=== PATIENT | female | born 1955 | race Caucasian/White ===

== ENCOUNTER → 2017-10-09 08:27 | Outpatient (CLI) | payer OTHER, SELFPAY ==
[2017-10-09 12:39] LABS: Absolute Lymphocyte Count 1.25 X10^3/ul (0.83-4.51); Absolute Neutrophil Count 2.9 X10^3/uL (2.0-7.7); Basophil# 0.03 X10^3/uL; Basophil% 0.6 % (0-1); Eosinophils% 4.1 % (0-5); Erythrocyte Sedimentation Rate 20 mm/hr (0-30); Hematocrit 37.6 % (37-47); Hemoglobin 12.5 g/dl (12.0-15.0); Lymphocyte # 1.25 X10^3/ul (4.0); Lymphocyte % 25.9 % (19-41); Mean Corp Hgb Conc 33.2 g/gl (32-36); Mean Corpuscular Hgb 29.3 pg (27.0-32.0); Mean Corpuscular Volume 88.3 fL (81-99); Mean Platelet Vol. 10.1 fl (6.2-12.0); Monocyte# 0.46 X10^3/uL; Monocyte% 9.5 % (0-10); Neutrophil # 2.89 X10^3/uL (2.7-7.7); Neutrophil % 59.9 % (47-70); Platelet Count 276 K/mm3 (150-450); RBC Distribution Width CV 12.6 % (11.6-14.6); RBC Distribution Width SD 39.8 fl (35.1-43.9); Red Blood Count 4.26 M/mm3 (4.2-5.4); White Blood Count 4.8 K/mm3 (4.4-11.0)
[2017-10-09 12:40] LABS: POSITIVE COUNT NO; POSITIVE DIFFERENTIAL NO; POSITIVE MORPHOLOGY NO
[2017-10-09 12:50] LABS: Vitamin D,25 Hydroxy 25.2 ng/mL (29.95-100.01)
[2017-10-09 13:04] LABS: ALB/GLOB Ratio 0.9 RATIO (0.9-2.4); AST(SGOT) 15 U/L (15-37); Alanine Aminotransfer ALT/SGPT 27 U/L (13-56); Albumin, Serum 3.7 g/dL (3.2-5.0); Alkaline Phosphatase 139 U/L (45-117); Anion Gap 9 (5-15); BUN 16 mg/dL (7-18); BUN/Creat Ratio 16.1 RATIO (10-20); Chloride 109 mmol/L (98-107); Creatinine, Serum 0.99 mg/dL (0.55-1.02); EST Glomerular Filtration Rate 61 mL/min (>60); Est Glom Filt Rate - Afr Amer 73 mL/min (>60); Glucose 96 mg/dL (74-106); Lipase 111 U/L (73-393); Potassium 4.2 mmol/L (3.5-5.1); Protein, Total 7.7 g/dL (6.4-8.2); Sodium Level 143 mmol/L (136-145); T4 Free Direct 1.27 ng/dL (0.76-1.46); Thyroid Stim Hormone (TSH) 1.86 uIU/mL (0.358-3.74)
== END ==
PROVIDERS: Family Provider Family Medicine; PCP Family Medicine; Visit Provider Family Medicine
DX: R73.01 Impaired fasting glucose (principal); E03.9 Hypothyroidism, unspecified; I10 Essential (primary) hypertension; R11.0 Nausea; M13.0 Polyarthritis, unspecified; R53.83 Other fatigue
CPT/HCPCS: 36415; 80053; 82306; 83690; 84439; 84443; 85025; 85652

== ENCOUNTER → 2017-10-21 08:36 | Outpatient (CLI) | payer OTHER, SELFPAY ==
--- NOTE | 2017-10-21 08:38 | BI_ITS ---
MAMMOGRAPHY - BILATERAL SCREENING REASON FOR EXAM: Female, 62 years old. Routine annual screening examination. PERTINENT HISTORY: Mother with breast cancer. Aunts with breast cancer. TECHNIQUE: Digital bilateral breast david (3D mammographic acquisition) in the CC and MLO projections. 2-D mediolateral oblique (MLO) and craniocaudad (CC) views of both breasts were obtained. CAD: Full Field Digital Mammography with Computer Added Detection was performed. COMPARISON: Comparison is made with prior study dated August 01, 2016. FINDINGS: Breast Composition: The breasts are heterogeneously dense, which may obscure small masses. There are no dominant masses or suspicious calcifications. No other significant abnormalities are identified. There has been no significant change since the prior study. BI/SCREENING MAMM (CAD), BILAT IMPRESSION: Stable bilateral screening mammogram. Yearly follow-up mammogram recommended. (A) ASSESSMENT CATEGORY: BIRADS Category 1: Negative. A letter regarding these results will be sent to the patient by the facility within 30 days. Approximately 10% of breast cancers are not detected by mammography. A normal mammogram should not delay biopsy of a clinically suspicious abnormality. [id number] Electronically Signed: Gavino Johnson MD at 8:18 EDT Tel [phone], Service support ,
== END ==
PROVIDERS: Family Provider Family Medicine; PCP Family Medicine; Visit Provider Family Medicine
DX: Z12.31 Encounter for screening mammogram for malignant neoplasm of breast (principal)
CPT/HCPCS: 77063; 77067

== ENCOUNTER → 2018-06-19 08:12 | Outpatient (CLI) | payer OTHER, SELFPAY ==
[2018-06-19 12:10] LABS: Absolute Lymphocyte Count 1.53 X10^3/ul (0.83-4.51); Absolute Neutrophil Count 2.1 X10^3/uL (2.0-7.7); Basophil# 0.03 X10^3/uL; Basophil% 0.7 % (0-1); Eosinophil# 0.27 X10^3/uL; Hematocrit 37.6 % (37-47); Hemoglobin 11.6 g/dl (12.0-15.0); Lymphocyte # 1.53 X10^3/ul (4.0); Lymphocyte % 33.9 % (19-41); Mean Corp Hgb Conc 30.9 g/gl (32-36); Mean Corpuscular Hgb 25.3 pg (27.0-32.0); Mean Corpuscular Volume 81.9 fL (81-99); Mean Platelet Vol. 9.9 fl (6.2-12.0); Monocyte# 0.56 X10^3/uL; Monocyte% 12.4 % (0-10); Neutrophil # 2.12 X10^3/uL (2.7-7.7); Platelet Count 335 K/mm3 (150-450); RBC Distribution Width CV 13.4 % (11.6-14.6); RBC Distribution Width SD 40.3 fl (35.1-43.9); Red Blood Count 4.59 M/mm3 (4.2-5.4); White Blood Count 4.5 K/mm3 (4.4-11.0)
[2018-06-19 12:14] LABS: POSITIVE COUNT NO; POSITIVE DIFFERENTIAL NO; POSITIVE MORPHOLOGY NO
[2018-06-19 12:57] LABS: Vitamin B12 593 pg/mL (211-911); Vitamin D,25 Hydroxy 48.9 ng/mL (29.95-100.01)
[2018-06-19 13:00] LABS: AST(SGOT) 19 U/L (15-37); Alanine Aminotransfer ALT/SGPT 31 U/L (13-56); Albumin, Serum 3.6 g/dL (3.2-5.0); Alkaline Phosphatase 164 U/L (45-117); Anion Gap 11 (5-15); BUN 16 mg/dL (7-18); BUN/Creat Ratio 18.1 RATIO (10-20); Calcium,Total 8.9 mg/dL (8.5-10.1); Chloride 108 mmol/L (98-107); Creatinine, Serum 0.88 mg/dL (0.55-1.02); EST Glomerular Filtration Rate 69 mL/min (>60); Est Glom Filt Rate - Afr Amer 83 mL/min (>60); Globulin 3.6 g/dL (2.2-4.2); Glucose 95 mg/dL (74-106); Potassium 3.8 mmol/L (3.5-5.1); Protein, Total 7.2 g/dL (6.4-8.2); Sodium Level 145 mmol/L (136-145); T4 Free Direct 1.54 ng/dL (0.76-1.46); Thyroid Stim Hormone (TSH) 0.02 uIU/mL (0.358-3.74)
== END ==
PROVIDERS: Family Provider Family Medicine; PCP Family Medicine; Visit Provider Family Medicine
DX: E03.9 Hypothyroidism, unspecified (principal); I10 Essential (primary) hypertension; R53.83 Other fatigue
CPT/HCPCS: 36415; 80053; 82306; 82607; 84439; 84443; 85025

== ENCOUNTER → 2018-06-25 09:25 | Outpatient (CLI) | payer OTHER, SELFPAY ==
[2018-06-25 12:26] LABS: Absolute Lymphocyte Count 1.31 X10^3/ul (0.83-4.51); Absolute Neutrophil Count 2.8 X10^3/uL (2.0-7.7); Basophil# 0.02 X10^3/uL; Basophil% 0.4 % (0-1); Eosinophil# 0.29 X10^3/uL; Eosinophils% 5.9 % (0-5); Hematocrit 35.4 % (37-47); Hemoglobin 10.8 g/dl (12.0-15.0); Lymphocyte # 1.31 X10^3/ul (4.0); Lymphocyte % 26.6 % (19-41); Mean Corp Hgb Conc 30.5 g/gl (32-36); Mean Corpuscular Hgb 25.2 pg (27.0-32.0); Mean Corpuscular Volume 82.5 fL (81-99); Mean Platelet Vol. 10.2 fl (6.2-12.0); Monocyte# 0.48 X10^3/uL; Monocyte% 9.7 % (0-10); Neutrophil # 2.82 X10^3/uL (2.7-7.7); Neutrophil % 57.2 % (47-70); Platelet Count 339 K/mm3 (150-450); RBC Distribution Width CV 13.5 % (11.6-14.6); RBC Distribution Width SD 39.8 fl (35.1-43.9); Red Blood Count 4.29 M/mm3 (4.2-5.4); White Blood Count 4.9 K/mm3 (4.4-11.0)
[2018-06-25 12:28] LABS: POSITIVE COUNT NO; POSITIVE DIFFERENTIAL NO; POSITIVE MORPHOLOGY NO
[2018-06-25 13:01] LABS: Vitamin B12 538 pg/mL (211-911)
[2018-06-25 13:45] LABS: Ferritin 7 ng/mL (8-252); Iron 31 ug/dL (50-170)
== END ==
PROVIDERS: Family Provider Family Medicine; PCP Family Medicine; Visit Provider Family Medicine
DX: D64.9 Anemia, unspecified (principal)
CPT/HCPCS: 36415; 82607; 82728; 82746; 83540; 85025

== ENCOUNTER 2018-07-10 09:37 | Day surgery (SDC) | payer OTHER, SELFPAY ==
[2018-07-10] VITALS (9 sets, daily range): BP systolic 101–138; BP diastolic 58–80; PULSE 81–112; RESP 16–18; TEMP 36.2–36.8; O2SAT 96–100; BMI 34.7
--- NOTE | 2018-07-10 11:06 | OP.ENDO_ITS ---
07/10/2018 Vinnie Leo Re : Upper GI endoscopy procedure for Gricelda Garcia Dear Felipa This procedure was performed on Tuesday, July 10, 2018. My impressions and recommendations are as follows: Impressions : - Normal esophagus. - Normal stomach. - Normal examined duodenum. - No specimens collected. Recommendations : - Discharge patient to home. - Resume previous diet. - Continue present medications. My findings are described in the full procedure note, which is enclosed. If I can be of further assistance, please feel free to contact me at Doctor phone number(s): , Work: . Sincerely, Dinesh Church MD 07/10/2018 11:06:44 AM This report has been signed electronically.
--- NOTE | 2018-07-10 11:08 | OP.ENDO_ITS ---
07/10/2018 Vinnie Leo Re : Colonoscopy procedure for Gricelda Garcia Dear Felipa This procedure was performed on Tuesday, July 10, 2018. My impressions and recommendations are as follows: Impressions : - The entire examined colon is normal on direct and retroflexion views. - No specimens collected. Recommendations : - Discharge patient to home. - Resume previous diet. - Continue present medications. - Repeat colonoscopy in 10 years for screening purposes. My findings are described in the full procedure note, which is enclosed. If I can be of further assistance, please feel free to contact me at Doctor phone number(s): , Work: . Sincerely, Dinesh Church MD 07/10/2018 11:07:53 AM This report has been signed electronically.
--- NOTE | 2018-07-10 11:09 | H&P.OPEN ---
History of Present Illness Date of Admission: 07/10/18 The patient is a 63 year old F here for screening colonoscopy. The patient had a colonoscopy 5 years ago and a polyp was noted. She has no gross blood in her stool or abdominal pain. She does have iron deficiency anemia and her doctor asked for an EGD as well. She is not complaining of any GERD. She is on no blood thinners and no ulcerogenic medicines. Past Medical/Surgical History - Planned Operation Planned Operative Procedure/s: CSCOPE/EGD OPEN ACCESS Date of Operative Procedure: 07/10/18 Permit Signed: No S.O.S: No Is This Patient Having a Total Joint: No - Previous Hospitalizations/Surgeries HX Hospitalizations: Yes - 2003 FOR CHEST PAIN HX of Surgeries: LEFT TKR 2012. BREAST BIOPSY 1992. LEG FX CHILD. TUBAL LIGATION. COLONOSCOPY 2012. HEART CATH 2003 Any Problems With Anesthesia: No You/Your Family Experience Fever (Hyperthermia) With Anes: No Cholinesterase deficiency: No - Cardiovascular Hx Chest Pain within Last 2 months: No Hx of Irregular Heartbeat and/or Afib: No - LAST CARDIOLOGY VISIT 2015/ Hx Heart Attack: No Hx Congestive Heart Failure: No Hx Rheumatic Fever: No Hx Hypertension: Yes - CONTROLLED WITH MED Hx Internal Defibrillator: No Hx Pacemaker: No Hx Cardiac Catheterization: Yes - 2003 What facility was last heart cath performed: [place] Date of last Heart Cath: 2003 Hx Cardiac Surgery/Stents/Etc.: No Hx Stress Test: Yes - OVER 5 YRS AGO HX Edema: Yes - OCC ANKLE EDEMA Hx Pain in Legs when Walking/Leg Cramps: No - Respiratory Chronic Cough: No HX of Shortness of Breath: Yes - SOB WITH 2 FLIGHTS OF STAIRS Hoarseness: No Hx Chronic Obstructive Pulmonary Disease (COPD): No Hx Asthma: Yes - INHALER Hx Emphysema: No Hx Sleep Apnea: No Hx Oxygen Use at Home: No Hx Respiratory Tract Infection/Cold (presently): No Do You Snore Loudly (louder than talking or can be heard): Yes Do You Often Feel Tired/ Fatigued/ Sleepy Dring Daytime?: No Has Anyone Observed You Stop Breathing During Sleep?: No Result (for STOP score): Positive Hx Smoking: No Smoking Status: Never smoker - Gastrointestinal Hx Gastroesophageal Reflux: No - OCC HEARTBURN Hx Gastrointestinal Disorders: No Hx Gastrointestinal Bleed: No Hx Ulcer: No Hx Hiatal Hernia: No Difficulty Chewing/Swallowing: No Recent Onset of Swallowing Problems: No Special diet followed at home: No Hx Unplanned Weight Loss of 20#: No HX Unplanned Weight Gain of 20#: No - Neurological HX Syncope/Blackout Spells/Unconsciousness: Yes - SYNCOPE RELATED TO EAR FULLNESS Hx CVA/Stroke: No Hx Transient Ischemic Attacks (TIA): No Hx Multiple Sclerosis: No Hx Parkinson's Disease: No Hx Head/Neck Injury: No Hx Headaches: No Hx Back Injury/Pain: Yes - CHRONIC BACK PAIN Recent Onset of Speech Difficulty: No Restless Legs: No Does patient have nerve stimulator: No Patient instructed to have device shut off: No Rep notified?: No - Blood Disorder Hx Leukemia: No Bleeding Tendencies: Yes - BRUISES EASILY Hx Deep Vein Thrombosis: No Hx High Cholesterol: Yes - ON MED Blood Transmitted Disease: No Hx Hepatitis: No Hx Cirrhosis: No Hx Anemia: Yes - CURRENTLY ON SUPPLEMENT Hx Blood Disorders: No - Reproduction : No Is Patient Lactating: No Hx Hysterectomy: No Hx Tubal Ligation: Yes Are You Post Menopause: Yes - Genitourinary Hx Renal Disease: No - Musculoskeletal Hx Arthritis: Yes Hx Rheumatoid Arthritis: No Hx Gout: No Recent Onset of an Orthopedic Problem: No - Endocrine Hx Diabetes: No Thyroid Disease: Yes - ON MED Hx Steroid Therapy: No - Psycho/Social Hx Substance Use: No Hx Alcohol Use: No Hx Anxiety: Yes - OCC Hx Depression: Yes - ON MED Mental Illness: No Hx Dementia: No - Miscellaneous Hx Cancer: No Recent Exposure to Contagious Disease: No Active MRSA: No Hx of C-Diff: No Any Loose Teeth: No Allergies Penicillins Allergy (Unknown, Verified 07/09/18 09:07) Rash shellfish derived Allergy (Unknown, Verified 07/09/18 09:07) Rash - Discharge Is Pt Admitted From a Custodial, or a Usp: No Who Could Help: FAMILY After D/C, Where Do you Plan to Go: Return Home - From the PAT History Number of Risk Factors: 5 - Physical Exam General: Alert, Oriented x3, Cooperative Neck: No JVD Lungs: Normal air movement Cardiovascular: Regular rate, Regular Rhythm Abdomen: Soft, Non Tender, Non-Distended Vital Signs Temp Pulse Resp BP Pulse Ox 98.2 F 112 H 16 138/80 H 96 07/10/18 10:00 07/10/18 10:00 07/10/18 10:00 07/10/18 10:00 07/10/18 10:00 Oxygen Delivery Method Room Air Weight: 202 lb Body Mass Index (BMI) 34.7 Assessment/Plan All Active Problems (Last Updated 10/11/17 @ 16:53 by Deepali Dixon) Cellulitis of right lower extremity (Acute) 63-year-old female with iron deficiency anemia and history of polyp 1. Plan on EGD and colonoscopy I explained endoscopy in detail to the patient. I explained the risks including but not limited to stroke or heart attack with anesthesia, perforation of the GI tract, bleeding, infection. I explained that any of these could necessitate further emergency surgery. The patient understands and all questions were answered sufficiently. The patient wishes to proceed with procedure. Dinesh Church MD Pager: [facility] [address] [place] [address] [address] [place] [address] Office: Surgery Risks - Colonoscopy Risks Include but are not Limited To: Risks include but are not limited to: Bleeding, perforation requiring further surgery, inability to complete colonoscopy requiring barium enema.
--- NOTE | 2018-07-10 11:10 | PCM.PN.BLA ---
Progress Note I performed an EGD and colonoscopy on the patient. EGD was normal with no ulceration or signs of head patient had normal colonoscopy as well with no polyps. No explanation for the iron deficiency anemia. Patient may resume screening colonoscopies in 10 years. Dinesh Church MD Pager: [facility] [address] [place] [address], [address] [place] [address] Office:
--- NOTE | 2018-07-10 11:11 | PN_ITS ---
Progress Note I performed an EGD and colonoscopy on the patient. EGD was normal with no ulceration or signs of head patient had normal colonoscopy as well with no polyps. No explanation for the iron deficiency anemia. Patient may resume screening colonoscopies in 10 years. Dinesh Church MD Pager: [facility] [address] [place] [address], [address] [place] [address] Office:
== END 2018-07-10 11:58 | disposition home or self-care (01) ==
LOC: EN 09:37 → AC 09:41
PROVIDERS: Family Provider Family Medicine; PCP Family Medicine; Referring Provider Surgery; Visit Provider Surgery
PROC: 0DJD8ZZ Inspection of Lower Intestinal Tract, Via Natural or Artificial Opening Endoscopic (ICD-10-PCS; CPT 45378; principal; 2018-07-10 10:40)
DX: Z12.11 Encounter for screening for malignant neoplasm of colon (principal); D50.9 Iron deficiency anemia, unspecified; E78.00 Pure hypercholesterolemia, unspecified; F32.9 Major depressive disorder, single episode, unspecified; F41.9 Anxiety disorder, unspecified; E06.9 Thyroiditis, unspecified; I10 Essential (primary) hypertension; J45.909 Unspecified asthma, uncomplicated; Z86.010 Personal history of colon polyps; Z79.51 Long term (current) use of inhaled steroids; Z79.899 Other long term (current) drug therapy
CPT/HCPCS: 43235; 45378; J7120

== ENCOUNTER → 2018-07-25 08:13 | Outpatient (CLI) | payer OTHER, SELFPAY ==
[2018-07-10 10:00] VITALS: BMI 34.7
[2018-07-25 13:04] LABS: Thyroid Stim Hormone (TSH) 0.11 uIU/mL (0.358-3.74)
== END ==
PROVIDERS: Family Provider Family Medicine; PCP Family Medicine; Visit Provider Family Medicine
DX: E03.9 Hypothyroidism, unspecified (principal)
CPT/HCPCS: 36415; 84439; 84443

== ENCOUNTER → 2018-08-20 | Outpatient (CLI) | payer OTHER, SELFPAY ==
[2018-07-10 10:00] VITALS: BMI 34.7
[2018-08-20 14:34] LABS: T4 Free Direct 1.25 ng/dL (0.76-1.46); Thyroid Stim Hormone (TSH) 0.03 uIU/mL (0.358-3.74)
== END | disposition home or self-care (01) ==
LOC: BFHLAB 10:38
PROVIDERS: Family Provider Family Medicine; PCP Family Medicine; Visit Provider Family Medicine
DX: E03.9 Hypothyroidism, unspecified (principal)
CPT/HCPCS: 36415; 84439; 84443

== ENCOUNTER → 2018-11-02 | Outpatient (CLI) | payer OTHER, SELFPAY ==
[2018-07-10 10:00] VITALS: BMI 34.7
--- NOTE | 2018-11-02 12:50 | BI_ITS ---
MAMMOGRAPHY - BILATERAL SCREENING REASON FOR EXAM: Female, 63 years old. Routine annual screening examination. PERTINENT HISTORY: Mother with breast cancer. Aunts with breast cancer. TECHNIQUE: Digital bilateral breast hao (3D mammographic acquisition) in the CC and MLO projections. 2-D mediolateral oblique (MLO) and craniocaudad (CC) views of both breasts were obtained. CAD: Full Field Digital Mammography with Computer Added Detection was performed. COMPARISON: Comparison is made with prior study dated October 21, 2017 and August 01, 2016. FINDINGS: Breast Composition: The breasts are heterogeneously dense, which may obscure small masses. There are no dominant masses or suspicious calcifications. No other significant abnormalities are identified. There has been no significant change since the prior study. BI/SCREEN MAMM (CAD) W/HAO BILAT IMPRESSION: Stable bilateral screening mammogram. Yearly follow-up mammogram recommended. (A) ASSESSMENT CATEGORY: BIRADS Category 1: Negative. A letter regarding these results will be sent to the patient by the facility within 30 days. Approximately 10% of breast cancers are not detected by mammography. A normal mammogram should not delay biopsy of a clinically suspicious abnormality. [id number] Electronically Signed: Gavino Johnson, at 14:43 EDT , Service support ,
== END | disposition home or self-care (01) ==
LOC: OPBI 12:48
PROVIDERS: Family Provider Family Medicine; PCP Family Medicine; Referring Provider Family Medicine; Visit Provider Family Medicine
DX: Z12.31 Encounter for screening mammogram for malignant neoplasm of breast (principal)
CPT/HCPCS: 77063; 77067

== ENCOUNTER → 2018-11-12 | Outpatient (CLI) | payer OTHER, SELFPAY ==
[2018-07-10 10:00] VITALS: BMI 34.7
[2018-11-12 17:16] LABS: Absolute Neutrophil Count 3.7 X10^3/uL (2.0-7.7); Basophil# 0.04 X10^3/uL; Basophil% 0.6 % (0-1); Eosinophil# 0.23 X10^3/uL; Eosinophils% 3.6 % (0-5); Hematocrit 40.1 % (37-47); Hemoglobin 13.1 g/dL (12.0-15.0); Lymphocyte % 28.2 % (19-41); Mean Corp Hgb Conc 32.7 g/dL (32-36); Mean Corpuscular Hgb 27.2 pg (27.0-32.0); Mean Corpuscular Volume 83.4 fL (81-99); Mean Platelet Vol. 9.7 fl (6.2-12.0); Monocyte# 0.56 X10^3/uL; Monocyte% 8.8 % (0-10); NRBC Flagged by Analyzer 0 % (0-5); Neutrophil # 3.74 X10^3/uL (2.7-7.7); Neutrophil % 58.5 % (47-70); Platelet Count 329 K/mm3 (150-450); RBC Distribution Width CV 13.7 % (11.6-14.6); RBC Distribution Width SD 41.4 fl (35.1-43.9); Red Blood Count 4.81 M/mm3 (4.2-5.4); White Blood Count 6.4 K/mm3 (4.4-11.0)
[2018-11-12 17:45] LABS: Thyroid Stim Hormone (TSH) 0.13 uIU/mL (0.358-3.74)
== END | disposition home or self-care (01) ==
LOC: BFHLAB 14:35
PROVIDERS: Family Provider Family Medicine; PCP Family Medicine; Visit Provider Family Medicine
DX: E03.9 Hypothyroidism, unspecified (principal); D64.9 Anemia, unspecified
CPT/HCPCS: 36415; 84439; 84443; 85025

== ENCOUNTER → 2018-12-26 09:22 | Outpatient (CLI) | payer OTHER, SELFPAY ==
[2018-07-10 10:00] VITALS: BMI 34.7
[2018-12-26 13:12] LABS: T4 Free Direct 1.35 ng/dL (0.76-1.46); Thyroid Stim Hormone (TSH) 0.62 uIU/mL (0.358-3.74)
== END ==
PROVIDERS: Family Provider Family Medicine; PCP Family Medicine; Visit Provider Family Medicine
DX: E03.9 Hypothyroidism, unspecified (principal)
CPT/HCPCS: 36415; 84439; 84443

== ENCOUNTER → 2019-06-19 08:26 | Outpatient (CLI) | payer OTHER, SELFPAY ==
[2018-07-10 10:00] VITALS: BMI 34.7
[2019-06-19 12:15] LABS: Absolute Lymphocyte Count 1.66 X10^3/uL (0.83-4.51); Absolute Neutrophil Count 2.8 X10^3/uL (2.0-7.7); Basophil# 0.05 X10^3/uL; Basophil% 0.9 % (0-1); Eosinophil# 0.35 X10^3/uL; Eosinophils% 6.4 % (0-5); Hematocrit 44.8 % (37-47); Hemoglobin 14.4 g/dL (12.0-15.0); Lymphocyte # 1.66 X10^3/ul (4.0); Lymphocyte % 30.6 % (19-41); Mean Corp Hgb Conc 32.1 g/dL (32-36); Mean Corpuscular Hgb 27.9 pg (27.0-32.0); Mean Corpuscular Volume 86.8 fL (81-99); Mean Platelet Vol. 9.7 fl (6.2-12.0); Monocyte# 0.59 X10^3/uL; Monocyte% 10.9 % (0-10); NRBC Flagged by Analyzer 0 % (0-5); Neutrophil # 2.76 X10^3/uL (2.7-7.7); Neutrophil % 50.8 % (47-70); Platelet Count 316 K/mm3 (150-450); RBC Distribution Width CV 12.7 % (11.6-14.6); Red Blood Count 5.16 M/mm3 (4.2-5.4); White Blood Count 5.4 K/mm3 (4.4-11.0)
[2019-06-19 12:30] LABS: Vitamin D,25 Hydroxy 56.8 ng/mL
[2019-06-19 12:32] LABS: AST(SGOT) 19 U/L (15-37); Alanine Aminotransfer ALT/SGPT 39 U/L (13-56); Albumin, Serum 3.8 g/dL (3.2-5.0); Alkaline Phosphatase 170 U/L (45-117); Anion Gap 7 (5-15); BUN 15 mg/dL (7-18); BUN/Creat Ratio 13.4 RATIO (10-20); Chloride 106 mmol/L (98-107); Creatinine, Serum 1.12 mg/dL (0.55-1.02); EST Glomerular Filtration Rate 52 mL/min (>60); Est Glom Filt Rate - Afr Amer 63 mL/min (>60); Glucose 98 mg/dL (74-106); Potassium 3.7 mmol/L (3.5-5.1); Protein, Total 7.8 g/dL (6.4-8.2); Sodium Level 139 mmol/L (136-145); T4 Free Direct 1.24 ng/dL (0.76-1.46); Thyroid Stim Hormone (TSH) 2.56 uIU/mL (0.358-3.74)
== END ==
PROVIDERS: PCP Family Medicine; Visit Provider Family Medicine
DX: E03.9 Hypothyroidism, unspecified (principal); I10 Essential (primary) hypertension; E55.9 Vitamin D deficiency, unspecified
CPT/HCPCS: 36415; 80053; 82306; 84439; 84443; 85025

== ENCOUNTER → 2019-11-04 | Outpatient (CLI) | payer OTHER, SELFPAY ==
[2018-07-10 10:00] VITALS: BMI 34.7
--- NOTE | 2019-11-04 08:37 | BI_ITS ---
MAMMOGRAPHY - BILATERAL SCREENING REASON FOR EXAM: Female, 64 years old. Routine annual screening examination. PERTINENT HISTORY: Mother with breast cancer. Aunts with breast cancer. TECHNIQUE: Digital bilateral breast hao (3D mammographic acquisition) in the CC and MLO projections. 2-D mediolateral oblique (MLO) and craniocaudad (CC) views of both breasts were obtained. CAD: Full Field Digital Mammography with Computer Added Detection was performed. COMPARISON: Comparison is made with prior study dated November 02, 2018 and October 21, 2017. FINDINGS: Breast Composition: The breasts are heterogeneously dense, which may obscure small masses. There are no dominant masses or suspicious calcifications. No other significant abnormalities are identified. There has been no significant change since the prior study. BI/SCREEN MAMM (CAD) W/HAO BILAT IMPRESSION: Stable bilateral screening mammogram. Yearly follow-up mammogram recommended. (A) ASSESSMENT CATEGORY: BIRADS Category 1: Negative. A letter regarding these results will be sent to the patient by the facility within 30 days. Approximately 10% of breast cancers are not detected by mammography. A normal mammogram should not delay biopsy of a clinically suspicious abnormality. [id number] Electronically Signed: Gavino Johnson, at 10:08 EDT , Service support ,
== END | disposition home or self-care (01) ==
LOC: OPBI 08:36
PROVIDERS: PCP Family Medicine; Referring Provider Family Medicine; Visit Provider Family Medicine
DX: Z12.31 Encounter for screening mammogram for malignant neoplasm of breast (principal)
CPT/HCPCS: 77063; 77067

== ENCOUNTER → 2019-11-12 | Outpatient (CLI) | payer OTHER, SELFPAY ==
[2019-11-12 10:16] VITALS: BMI 34.7
[2019-11-15 03:41] LABS: HPV APTIMA, High Risk Negative (Negative)
== END | disposition home or self-care (01) ==
LOC: LABSPEC 13:00
PROVIDERS: PCP Family Medicine; Referring Provider Nurse Practitioner Women's Health; Visit Provider Nurse Practitioner Women's Health
DX: Z12.4 Encounter for screening for malignant neoplasm of cervix (principal)
CPT/HCPCS: 87624; 88175; G0145

== ENCOUNTER → 2019-12-23 | Outpatient (CLI) | payer OTHER, SELFPAY ==
[2019-11-12 10:16] VITALS: BMI 34.7
[2019-12-23 12:27] LABS: Vitamin D,25 Hydroxy 67.6 ng/mL
[2019-12-23 12:39] LABS: ALB/GLOB Ratio 1.1 RATIO (0.9-2.4); AST(SGOT) 19 U/L (15-37); Alanine Aminotransfer ALT/SGPT 33 U/L (13-56); Albumin, Serum 3.9 g/dL (3.2-5.0); Alkaline Phosphatase 151 U/L (45-117); Anion Gap 7 (5-15); BUN 14 mg/dL (7-18); BUN/Creat Ratio 13.9 RATIO (10-20); Calcium,Total 9.1 mg/dL (8.5-10.1); Chloride 108 mmol/L (98-107); Creatinine, Serum 1.01 mg/dL (0.55-1.02); EST Glomerular Filtration Rate 59 mL/min (>60); Est Glom Filt Rate - Afr Amer 71 mL/min (>60); Globulin 3.7 g/dL (2.2-4.2); Glucose 98 mg/dL (74-106); Potassium 3.6 mmol/L (3.5-5.1); Protein, Total 7.6 g/dL (6.4-8.2); Sodium Level 142 mmol/L (136-145)
== END | disposition home or self-care (01) ==
LOC: BFHLAB 09:21
PROVIDERS: PCP Family Medicine; Visit Provider Family Medicine
DX: E03.9 Hypothyroidism, unspecified (principal); E55.9 Vitamin D deficiency, unspecified; R74.8 Abnormal levels of other serum enzymes
CPT/HCPCS: 36415; 80053; 82306; 84443

== ENCOUNTER 2020-06-18 22:25 | Outpatient (RCR) | payer OTHER, SELFPAY ==
[2019-11-12 10:16] VITALS: BMI 34.7
== END 2020-06-18 23:59 ==
LOC: IMMUN 22:25
PROVIDERS: PCP Family Medicine; Visit Provider Family Medicine
DX: Z23 Encounter for immunization (principal)
CPT/HCPCS: 0011A; 0012A

== ENCOUNTER → 2020-11-16 07:33 | Outpatient (CLI) | payer OTHER, SELFPAY ==
[2019-11-12 10:16] VITALS: BMI 34.7
--- NOTE | 2020-11-16 07:36 | BI_ITS ---
MAMMOGRAPHY - BILATERAL SCREENING REASON FOR EXAM: Female, 65 years old. Routine annual screening examination. PERTINENT HISTORY: Mother with breast cancer. Aunts with breast cancer. TECHNIQUE: Digital bilateral breast hao (3D mammographic acquisition) in the CC and MLO projections. 2-D mediolateral oblique (MLO) and craniocaudad (CC) views of both breasts were obtained. CAD: Full Field Digital Mammography with Computer Added Detection was performed. COMPARISON: Comparison is made with prior study dated 11/04/2019 and 11/02/2018. FINDINGS: Breast Composition: The breasts are heterogeneously dense, which may obscure small masses. There are no dominant masses or suspicious calcifications. Stable benign-appearing left axillary lymph nodes. No other significant abnormalities are identified. There has been no significant change since the prior study. BI/SCRN MAMM (CAD)W/HAO BILAT IMPRESSION: Stable bilateral screening mammogram. Yearly follow-up mammogram recommended. (A) ASSESSMENT CATEGORY: BIRADS Category 2: Benign. A letter regarding these results will be sent to the patient by the facility within 30 days. Approximately 10% of breast cancers are not detected by mammography. A normal mammogram should not delay biopsy of a clinically suspicious abnormality. [id number] Electronically Signed: Gavino Johnson MD at 8:49 EDT , Service support ,
== END ==
PROVIDERS: PCP Family Medicine; Referring Provider Family Medicine; Visit Provider Family Medicine
DX: Z12.31 Encounter for screening mammogram for malignant neoplasm of breast (principal)
CPT/HCPCS: 77063; 77067

== ENCOUNTER → 2021-11-18 | Outpatient (CLI) | payer MEDICARE, SELFPAY ==
--- NOTE | 2021-11-18 07:20 | BI_ITS ---
MAMMOGRAPHY - BILATERAL SCREENING REASON FOR EXAM: Female, 66 years old. Routine annual screening examination. PERTINENT HISTORY: Mother with breast cancer. Aunts with breast cancer. TECHNIQUE: Digital bilateral breast hao (3D mammographic acquisition) in the CC and MLO projections. 2-D mediolateral oblique (MLO) and craniocaudad (CC) views of both breasts were obtained. CAD: Full Field Digital Mammography with Computer Added Detection was performed. COMPARISON: Comparison is made with prior examination dated 11/16/2020 and 11/04/2019 FINDINGS: Breast Composition: The breasts are heterogeneously dense, which may obscure small masses. There are no dominant masses or suspicious calcifications. There is a 5.9 mm well-defined nodule in the upper lateral aspect of the right breast. This may represent a small lymph node. Relation with ultrasound recommended. Stable small benign-appearing bilateral axillary lymph nodes. No other significant abnormalities are identified. BI/SCRN MAMM (CAD)W/HAO BILAT IMPRESSION: 5.9 mm well-defined nodule in the upper lateral aspect of the right breast. Correlation with ultrasound recommended. ASSESSMENT CATEGORY: BIRADS Category 0: Incomplete. Need additional imaging evaluation. A letter regarding these results will be sent to the patient by the facility within 30 days. Approximately 10% of breast cancers are not detected by mammography. A normal mammogram should not delay biopsy of a clinically suspicious abnormality. [id number] Electronically Signed: Gavino Johnson MD at 8:21 EDT ,
== END | disposition home or self-care (01) ==
PROVIDERS: PCP Family Medicine; Visit Provider Family Medicine
DX: Z12.31 Encounter for screening mammogram for malignant neoplasm of breast (principal); Z80.3 Family history of malignant neoplasm of breast
CPT/HCPCS: 77063; 77067

== ENCOUNTER → 2021-11-19 | Outpatient (CLI) | payer MEDICARE, OTHER, SELFPAY ==
--- NOTE | 2021-11-19 12:55 | US_ITS ---
STUDY: ULTRASOUND BREAST - RIGHT REASON FOR EXAM: Female, 66 years old. Abnormal screening mammogram. TECHNIQUE: Axial and longitudinal images of the RIGHT breast were performed with a high resolution ultrasound transducer. # OF IMAGES: 20 COMPARISON: Comparison is made with prior mammogram dated 11/18/2021 and 11/16/2020. FINDINGS: RIGHT Breast: The upper lateral aspect of the right breast was examined with ultrasound. The mammographic abnormality corresponds to a 7 mm x 5 mm x 5 mm cyst. US/Breast Limited Unilateral IMPRESSION: 7 mm x 5 mm x 5 mm cyst in the upper lateral aspect of the breast at the 10 o''clock position and 4 sinus and nipple. ASSESSMENT CATEGORY: BIRADS Category 2: Benign. A letter regarding these results will be sent to the patient by the facility within 30 days. Electronically Signed: Gavino Johnson MD at 13:42 EDT ,
== END | disposition home or self-care (01) ==
LOC: OPUS 12:54
PROVIDERS: PCP Family Medicine; Visit Provider Family Medicine
DX: N63.11 Unspecified lump in the right breast, upper outer quadrant (principal)
CPT/HCPCS: 76642

== ENCOUNTER 2022-01-10 08:03 | Outpatient (CLI) | payer MEDICARE, OTHER, SELFPAY ==
[2022-01-10 09:53] LABS: Color, Urine Yellow (Yellow); Glucose, Dipstick Normal (Normal); Ketone-Dipstick Negative (Negative); Leukocyte Esterase-Dipstick 500 /ul (Negative); Nitrite-Dipstick Negative (Negative); Occult Blood-Urine Negative /ul (Negative); Protein-Dipstick Negative (Negative); Specific Gravity, Urine 1.015 (1.002-1.030); Urine Bilirubin Dipstick Negative (Negative); Urine Clarity Clear (Clear); Urine Urobilinogen Normal (Normal)
[2022-01-10 10:06] LABS: Absolute Neutrophil Count 2.8 X10^3/uL (2.0-7.7); Basophil# 0.05 X10^3/uL; Eosinophils% 4.1 % (0-5); Hematocrit 42.1 % (37-47); Lymphocyte % 28.7 % (19-41); Mean Corp Hgb Conc 33.3 g/dL (32-36); Mean Corpuscular Hgb 29.6 pg (27.0-32.0); Mean Platelet Vol. 9.4 fl (6.2-12.0); Monocyte# 0.43 X10^3/uL; Monocyte% 8.8 % (0-10); NRBC Flagged by Analyzer 0 % (0-5); Neutrophil # 2.78 X10^3/uL (2.7-7.7); Neutrophil % 57.2 % (47-70); Platelet Count 288 K/mm3 (150-450); RBC Distribution Width CV 12.8 % (11.6-14.6); RBC Distribution Width SD 41.7 fl (35.1-43.9); Red Blood Count 4.73 M/mm3 (4.2-5.4); White Blood Count 4.9 K/mm3 (4.4-11.0)
[2022-01-10 10:15] LABS: International Normalized Ratio 0.9; Partial Thromboplast Time 26.2 Seconds (24.1-36.2); Prothrombin Time (Protime)PT. 12.1 SECONDS (11.7-14.9)
[2022-01-10 10:54] LABS: Anion Gap 9 (5-15); BUN 23 mg/dL (7-18); Calcium,Total 9.4 mg/dL (8.5-10.1); Chloride 108 mmol/L (98-107); Creatinine, Serum 1.15 mg/dL (0.55-1.02); EST Glomerular Filtration Rate 50 mL/min (>60); Est Glom Filt Rate - Afr Amer 61 mL/min (>60); Glucose 102 mg/dL (74-106); Potassium 3.9 mmol/L (3.5-5.1); Sodium Level 143 mmol/L (136-145)
== END 2022-01-10 23:59 | disposition home or self-care (01) ==
LOC: MTLAB 08:05
PROVIDERS: PCP Family Medicine; Referring Provider Orthopaedic Surgery; Visit Provider Orthopaedic Surgery
DX: Z01.812 Encounter for preprocedural laboratory examination (principal); Z01.818 Encounter for other preprocedural examination; I10 Essential (primary) hypertension; E78.00 Pure hypercholesterolemia, unspecified; E07.9 Disorder of thyroid, unspecified
CPT/HCPCS: 36415; 80048; 81002; 85025; 85610; 85730; 87086; 87088

== ENCOUNTER 2022-04-26 08:00 | Outpatient (RCR) | payer MEDICARE, OTHER, SELFPAY ==
--- NOTE | 2022-02-04 07:22 | HP.PTEVAL_ITS ---
Patient's Visit Information SOTO FAIRBANKS is a 66 year old F referred to Physical Therapy by Dr. Nate Barakat DO with a diagnosis of R TKA. Date of Evaluation: 02/02/22 Physical Therapist: Brice Mcnally DPT - Visit Plan Frequency: 3x /Week Duration: 6 Weeks Plan: Start with ROM progression, work on edema control and initiate strengthening. Pt. is to have CPM delivered and increased ROM 10deg per day as tolerated. - Subjective Pt. is here today for her initial evaluation with diagnosis of R TKA. DOS: 02/01/22. Pt. arrives today using FWW with fairly good tolerance. 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 She has to do a decent amount of walking for her job, ie walking in hospital and nursing homes. Pt. denies N/t, no calf pain, no fever or chest pain. Pt. is supposed to have a CPM, but has not received yet. Pt. did have trouble with sleeping last night, but is icing and taking pain medication as indicated. Pt. is to follow up with physician at 2 weeks. She has been wearing TEDs as scribed and is supposed to get CPM later today. Pt. is hopeful to regain her ROM and strength in order to get back to all work and recreational activities without limitations. - Pain R knee Pain Intensity (Out of 10): 6 Pain Intensity Range: 4, 8 - Objective POSTURE: Pt has decent posture in stance. Slight lack of TKE on R knee, but able to bear wt. well with FWW. PALPATION: Pt. had zev removed, good tolerated. Lateral bruising noted. Expected swelling and redness noted. Anterior aqua bandage in place. Slight drainage noted. NEURO: Pt. had normal sensation and Achilles DTR noted. Pt. is able to rise on heels and toes without issues. ROM: R knee: PROM: 0-0-78deg. AROM: 0-5-70deg. MMT: RLE: ankle 5/5 throughout; knee: ext 5#, flexion 8#; hip: flexion 0#, abd 0#. ext 5#. GAIT: Pt. ambulates wtih FWW with good tolerance. She lack TKE during R stance phase and has decreased R knee flexion during swing phase. - Balance/Special Test Scores Lower Extremity Functional Score: 42 TUG Test Time Seconds: 48 30 Second Chair Rise Test Seconds: 4 WOMAC Total Score: 96 WOMAC Percentatge: 0 - Goals Goal 1:: LTG: Pt. to be I with HEP. Goal Time Frame: 4-6 Weeks Goal 2:: STG: Pt. to have increased R knee ROM to 0-0-120deg. Goal Time Frame: 2-4 Weeks Goal 3:: LTG: Pt. to have at least 20# of strength of all RLE musculature. Goal Time Frame: 4-6 Weeks Goal 4:: STG: Pt. to ambulate with SPC with normal gait pattern without increase in symptoms. Goal Time Frame: 2-4 Weeks Goal 5:: LTG: Pt. to negotiate 1 flight of stairs with 1 HR with reciprocal pattern. Goal Time Frame: 4-6 Weeks Goal 6:: LTG: Pt. to ambulate with out AD with normal gait pattern for unlimited distances without increase in symptoms. Goal Time Frame: 4-6 Weeks - Rehabilitation Potential Physical Therapy Diagnosis: Pt. has signs and symptoms consistent with R TKA. Pt. has marked hypomobility, weakness, increased pain, and increased edema. Pt. would benefit from PT to address the above limitations progressing back to all previous job and recreational activities. Rehabilitation Potential: Excellent - Anticipated Interventions Patient/Client Instruction: Educate patient on: Condition, Plan of Care, Risk Factors, Benefits of Fitness Program For the Purpose of:: To foster healthy habits, To improve decision making, To facilitate caregiver knowledge, To improve self management, To prevent re- injury, To improve ability to perform tasks related to life management Therapeutic Exercise to Include: Strength training, Power training, Coordination, Postural training, Flexibilty training, Gait and locomotor training, Passive ROM, Active ROM For the Purpose of:: To decrease pain, To decrease swelling/inflammation, To increase ROM, To improve nutrient delivery to tissue, To increase oxygenation perfusion, To improve muscle performance and motor function, To increase rhonda ance to activity/condition/position, To decrease level of supervision to perform tasks, To improve ability of physical actions for home/community/work/leisure, To improve gait and locomotor functions, To improve health of tissue, To decrease soft tissue restriction, To increase flexibility/ROM Cryotherapy (ice pack, ice massage): Yes Vasopneumatic device: Yes For the Purpose of:: To decrease pain, To decrease swelling/inflammation, To increase ROM, To improve nutrient delivery to tissue Thank you for the opportunity to evaluate your patient. For Medicare and Medicare HMO plans, please review the plan of care and approve it. It will need to be FAXED BACK to us at [phone] for Medicare purposes. For Medicare only, by signing this I certify the plan of care. Please let me know if there are questions or concerns regarding this plan of care. Physician Signature: Date:
--- NOTE | 2022-03-10 07:57 | HP.PTREVAL_ITS ---
Dr. Nate Barakat, DO, It has been my pleasure to treat SOTO FAIRBANKS over the last 17 visits for R TKR 02/01/22. Please see the progress note below for an update on the physical therapy plan of care! Subjective: Pt. reports overall doing well. Pt. is having some thigh soreness over the past few days. Pt. repots being 80% better overall. She is driving, walking without AD and taking only Tylenol now. Her R hip is doing much better. Objective/Function: ROM: AROM in supine: 0-2-111deg. PROM in supine: 0-0-119deg. (empty end feel). I discussed with her the goals of getting 0-0-120deg. of R knee ROM, Pt. reports understanding. Overall she has pain limiting full ROM, but as we gentle worked into ROM it improved. MMT: LLE: Knee ext: 38.9#, flexion 27.1#. RLE: knee: ext 24.7#, flexion 14.6#. Pt. is about 60-65% of strength from R to L of her knee musculature. GAIT: Pt. walks with a slight antalgic pattern during R stance phase. Improved with VCing for TKE during stance. Good knee flexion during swing phase noted. NO AD. STAIRS: Pt. is able to complete with 2 HR with reciprocal pattern. Slight reported weakness with push up during ascending on RLE and decreased control with eccentric lowering on RLE. TU.2sec without AD. Plan Plan: Pt. is doing well. I would like to work on increasing her tolerance to end range extension and flexion. Work on improved gait mechanics. I want her to take the next few days and work just on stretching for mobility and stay away from high volume of squatting and steps to increase tolerance and to reduce quad pain. Pt. consents. Pt. to see physician early next week. I will see her x2 per week for 3-4 weeks to work on the above limitations progress back to full mobility and minimal pain with functional mobility. Balance/Gait/Functional tests - Balance/Special Test Scores Lower Extremity Functional Score: 50 TUG Test Time Seconds: 9.2 Tug Test: <10 sec.=free mobile 30 Second Chair Rise Test Seconds: 4 WOMAC Total Score: 96 WOMAC Percentage: 0 Goals Goal 1:: LTG: Pt. to be I with HEP. Goal Time Frame: 4-6 Weeks Goal Progress: Progressing Goal 2:: STG: Pt. to have increased R knee ROM to 0-0-120deg. Goal Time Frame: 2-4 Weeks Goal Progress: Progressing Goal 3:: LTG: Pt. to have at least 20# of strength of all RLE musculature. Goal Time Frame: 4-6 Weeks Goal Progress: Progressing Goal 4:: STG: Pt. to ambulate with SPC with normal gait pattern without increase in symptoms. Goal Time Frame: 2-4 Weeks Goal Progress: Goal Met Goal 5:: LTG: Pt. to negotiate 1 flight of stairs with 1 HR with reciprocal pattern. Goal Time Frame: 4-6 Weeks Goal Progress: Progressing Goal 6:: LTG: Pt. to ambulate with out AD with normal gait pattern for unlimited distances without increase in symptoms. Goal Time Frame: 4-6 Weeks Goal Progress: Progressing Anticipated Interventions Patient/Client Instruction: Educate patient on: Condition, Plan of Care, Risk Factors, Benefits of Fitness Program For the Purpose of:: To foster healthy habits, To improve decision making, To facilitate caregiver knowledge, To improve self management, To prevent re- injury, To improve ability to perform tasks related to life management Therapeutic Exercise to Include: Strength training, Power training, Coordination, Postural training, Flexibilty training, Gait and locomotor training, Passive ROM, Active ROM For the Purpose of:: To decrease pain, To decrease swelling/inflammation, To increase ROM, To improve nutrient delivery to tissue, To increase oxygenation perfusion, To improve muscle performance and motor function, To increase tolerance to activity/condition/position, To decrease level of supervision to perform tasks, To improve ability of physical actions for home /community/work/leisure, To improve gait and locomotor functions, To improve health of tissue, To decrease soft tissue restriction, To increase flexibility/ROM Cryotherapy (ice pack, ice massage): Yes Vasopneumatic device: Yes For the Purpose of:: To decrease pain, To decrease swelling/inflammation, To increase ROM, To improve nutrient delivery to tissue Please do not hesitate to contact me at [phone] by phone or if you have questions or concerns regarding this new plan of care! Sincerely, Brice Mcnally DPT
--- NOTE | 2022-04-05 08:33 | HP.PTREVAL_ITS ---
Dr. Nate Barakat, DO, It has been my pleasure to treat SOTO FAIRBANKS over the last 20 visits for R TKR 02/01/22. Please see the progress note below for an update on the physical therapy plan of care! Subjective: Pt. reports overall doing well. No major issues noted. Pt. reports being 75% better overall. No major issues noted with ROM. Objective/Function: ROM: 0-0-119deg. Pt. has good HS length as well. MMT: 4+/5 throughout. Pt. is overall doing well. Pt. has mild increase in symptoms with knee extension, but no lasting issues. gait: Pt. is walking well, but still has a mild antalgic pattern during R stance phase of gait, but is progressing. stairs: pt. is able to negotiate with reciprocal pattern, but does have some mild increase in R knee pain during loaded phases. Plan Plan: Cont. to work on gait and strengthening progression. Overall doing well. Cont. to work on ROM, but is overall pressing well. Balance/Gait/Functional tests - Balance/Special Test Scores Lower Extremity Functional Score: 50 TUG Test Time Seconds: 9.2 Tug Test: <10 sec.=free mobile 30 Second Chair Rise Test Seconds: 4 WOMAC Total Score: 96 WOMAC Percentage: 0 Goals Goal 1:: LTG: Pt. to be I with HEP. Goal Time Frame: 4-6 Weeks Goal Progress: Goal Met Goal 2:: STG: Pt. to have increased R knee ROM to 0-0-120deg. Goal Time Frame: 2-4 Weeks Goal Progress: Progressing Goal 3:: LTG: Pt. to have at least 20# of strength of all RLE musculature. Goal Time Frame: 4-6 Weeks Goal Progress: Progressing Goal 4:: STG: Pt. to ambulate with SPC with normal gait pattern without increase in symptoms. Goal Time Frame: 2-4 Weeks Goal Progress: Goal Met Goal 5:: LTG: Pt. to negotiate 1 flight of stairs with 1 HR with reciprocal pattern. Goal Time Frame: 4-6 Weeks Goal Progress: Progressing Goal 6:: LTG: Pt. to ambulate with out AD with normal gait pattern for unlimited distances without increase in symptoms. Goal Time Frame: 4-6 Weeks Goal Progress: Progressing Anticipated Interventions Patient/Client Instruction: Educate patient on: Condition, Plan of Care, Risk Factors, Benefits of Fitness Program For the Purpose of:: To foster healthy habits, To improve decision making, To facilitate caregiver knowledge, To improve self management, To prevent re- injury, To improve ability to perform tasks related to life management Therapeutic Exercise to Include: Strength training, Power training, Coordination, Postural training, Flexibilty training, Gait and locomotor training, Passive ROM, Active ROM For the Purpose of:: To decrease pain, To decrease swelling/inflammation, To increase ROM, To improve nutrient delivery to tissue, To increase oxygenation perfusion, To improve muscle performance and motor function, To increase tolerance to activity/condition/position, To decrease level of supervision to perform tasks, To improve ability of physical actions for home/community/work/leisure, To improve gait and locomotor functions, To improve health of tissue, To decrease soft tissue restriction, To increase flexibility/ROM Cryotherapy (ice pack, ice massage): Yes Vasopneumatic device: Yes For the Purpose of:: To decrease pain, To decrease swelling/inflammation, To increase ROM, To improve nutrient delivery to tissue Please do not hesitate to contact me at [phone] by phone or if you have questions or concerns regarding this new plan of care! Sincerely, Brice Mcnally DPT
--- NOTE | 2022-04-26 09:53 | HP.PTDCSUM ---
It has been my pleasure to treat SOTO FAIRBANKS referred by Dr. Nate Barakat DO, with the diagnosis of R TKR 02/01/22 for a total of 27 visit(s). Discharge Date: 04/26/22 Please see the following information for a summary of their discharge status. Subjective: Pt. reports no issues today. She missed last appointment due to being sick. Pt. reports overall doing well. Pt. reports pleased with progress. HEP compliant. R knee Pain Intensity (Out of 10): 0 R hip Pain Intensity (Out of 10): 0 % Improvement: 90 Objective/Function: ROM: 0-0-120deg active, MMT: RLE: knee ext 41#, flexion 23.1#. LLE: knee: ext 48.8#, flexion 23.4#. GAIT: Pt. is ambulating well without issues. Pt. reports no pain with ambulation. No AD needed. STAIRS: Pt. completed with 1 HR with reciprocal pattern. Slight functional weakness with ascending, but otherwise no issues. TU.9sec no AD. Goal 1:: LTG: Pt. to be I with HEP. Goal Progress: Goal Met Goal 2:: STG: Pt. to have increased R knee ROM to 0-0-120deg. Goal Progress: Goal Met Goal 3:: LTG: Pt. to have at least 20# of strength of all RLE musculature. Goal Progress: Goal Met Goal 4:: STG: Pt. to ambulate with SPC with normal gait pattern without increase in symptoms. Goal Progress: Goal Met Goal 5:: LTG: Pt. to negotiate 1 flight of stairs with 1 HR with reciprocal pattern. Goal Progress: Goal Met Goal 6:: LTG: Pt. to ambulate with out AD with normal gait pattern for unlimited distances without increase in symptoms. Goal Progress: Goal Met Plan: Pt. to be DC from PT at this point in time. Pt. to follow up with physician later next week. Discharge Comments: Pt. is overall doing great. Pt. pleased with progress. Pt. is walking well, she has good ROM and good strength. She is to continue with her walking porgram and start gym exercises. She is I with both. Pt. to be DC from PT at this point in time. If there are questions or concerns regarding this patient's physical therapy, please feel free to call me at [phone]. Thank you for the referral of this patient. Sincerely, YANNICK BelcherT Balance/Gait/Functional tests - Balance/Special Test Scores Lower Extremity Functional Score: 69 TUG Test Time Seconds: 9.2 Tug Test: <10 sec.=free mobile 30 Second Chair Rise Test Seconds: 4 WOMAC Total Score: 96 WOMAC Percentage: 0
== END 2022-04-26 10:39 | disposition home or self-care (01) ==
LOC: PT 08:00
PROVIDERS: PCP Family Medicine; Referring Provider Orthopaedic Surgery; Visit Provider Orthopaedic Surgery
DX: M17.11 Unilateral primary osteoarthritis, right knee (principal)
CPT/HCPCS: 97016; 97110; 97161; 97164

== ENCOUNTER → 2022-07-12 | Outpatient (CLI) | payer MEDICARE, OTHER, SELFPAY ==
[2022-07-12 10:15] LABS: Absolute Lymphocyte Count 1.76 X10^3/uL (0.83-4.51); Absolute Neutrophil Count 3.1 X10^3/uL (2.0-7.7); Basophil# 0.07 X10^3/uL; Basophil% 1.2 % (0-1); Eosinophil# 0.31 X10^3/uL; Eosinophils% 5.4 % (0-5); Hematocrit 44.3 % (37-47); Hemoglobin 14.2 g/dL (12.0-15.0); Lymphocyte # 1.76 X10^3/ul (0.83-4.51); Lymphocyte % 30.7 % (19-41); Mean Corp Hgb Conc 32.1 g/dL (32-36); Mean Corpuscular Hgb 28.1 pg (27.0-32.0); Mean Corpuscular Volume 87.7 fL (81-99); Mean Platelet Vol. 9.4 fl (6.2-12.0); Monocyte# 0.52 X10^3/uL; Monocyte% 9.1 % (0-10); NRBC Flagged by Analyzer 0 % (0-5); Neutrophil # 3.05 X10^3/uL (2.7-7.7); Neutrophil % 53.1 % (47-70); Platelet Count 297 K/mm3 (150-450); RBC Distribution Width CV 12.5 % (11.6-14.6); Red Blood Count 5.05 M/mm3 (4.2-5.4); White Blood Count 5.7 K/mm3 (4.4-11.0)
[2022-07-12 10:23] LABS: Vitamin D,25 Hydroxy 73.2 ng/mL
[2022-07-12 10:28] LABS: AST(SGOT) 12 U/L (15-37); Alanine Aminotransfer ALT/SGPT 24 U/L (13-56); Albumin, Serum 3.7 g/dL (3.2-5.0); Alkaline Phosphatase 148 U/L (45-117); Anion Gap 7 (5-15); BUN 18 mg/dL (7-18); Calcium,Total 9.3 mg/dL (8.5-10.1); Chloride 109 mmol/L (98-107); Cholesterol 215 mg/dL (200); EST Glomerular Filtration Rate 59 mL/min (>60); Est Glom Filt Rate - Afr Amer 71 mL/min (>60); Globulin 3.6 g/dL (2.2-4.2); Glucose 109 mg/dL (74-106); High Density Lipoprotein 73 mg/dL; Potassium 3.7 mmol/L (3.5-5.1); Protein, Total 7.3 g/dL (6.4-8.2); Sodium Level 141 mmol/L (136-145); T4 Free Direct 1.11 ng/dL (0.76-1.46); Thyroid Stim Hormone (TSH) 0.53 uIU/mL (0.358-3.74); Triglycerides 167 mg/dL; Very Low Density Lipoprotein 33 mg/dL (5-40)
[2022-07-12 10:29] LABS: Hemoglobin A1c 5.8 % (3.8-5.6)
== END | disposition home or self-care (01) ==
LOC: MTLAB 07:33
PROVIDERS: PCP Family Medicine; Referring Provider Family Medicine; Visit Provider Family Medicine
DX: I10 Essential (primary) hypertension (principal); R73.01 Impaired fasting glucose; E03.9 Hypothyroidism, unspecified; E55.9 Vitamin D deficiency, unspecified
CPT/HCPCS: 36415; 80053; 80061; 82306; 83036; 84439; 84443; 85025

== ENCOUNTER → 2022-08-25 | Outpatient (CLI) | payer MEDICARE, OTHER, SELFPAY ==
--- NOTE | 2022-08-25 14:56 | BD_ITS ---
STUDY: DUAL ENERGY X-RAY ABSORPTIOMETRY / DXA REASON FOR EXAM: Female, 67 years old. M81.0 COMPARISON: None. FINDINGS: Lumbar Spine (L1-L4): g/cm2 (0.808) / T-score (-2.2) / Z-score (-0.3) Findings are suggestive of osteopenia with a high fracture risk. Left Femur Total: g/cm2 (0.826) / T-score (-0.9) / Z-score (0.3) Left Femoral Neck: g/cm2 (0.576) / T-score (-2.5) / Z-score (-0.9) Right Femur Total: g/cm2 (0.771) / T-score (-1.4) / Z-score (-0.1) Right Femoral Neck: g/cm2 (0.610) / T-score (-2.2) / Z-score (-0.6) BD/Dexa Bone Density Study IMPRESSION: The patient is considered osteopenic as outlined below according to World Karthikey[employer] Organization (WHO) criteria with a high fracture risk. Reference Information: The T-score is the number of standard deviations above or below the standard which is normal for young adults at their peak bone mineral density. The World Health Organization (WHO) interprets the T-scores as follows: Above -1 Normal bone density Between -1 and -2.5 Osteopenia Equal to / or below -2.5 Osteoporosis As a practical clinical guideline, osteopenia may be graded as follows: Mild -1 through -1.5 Moderate -1.6 through -2.0 Severe -2.1 through -2.4 The Z-score is the number of standard deviations above or below age-matched controls. A Z-score of less than -1.5 would be considered abnormal. References: 1. [facility] Osteoporosis and Related Bone Diseases www osteo.org 2. International Society for Clinical Densitometry www iscd.org 3. National Osteoporosis Foundation www nof.org Electronically Signed: Gavino Johnson MD at 14:25 EDT ,
== END | disposition home or self-care (01) ==
LOC: OPBD 14:40
PROVIDERS: PCP Family Medicine; Referring Provider Family Medicine; Visit Provider Family Medicine
DX: M81.0 Age-related osteoporosis without current pathological fracture (principal)
CPT/HCPCS: 77080

== ENCOUNTER 2022-11-11 09:45 | Outpatient (CLI) | payer MEDICARE, OTHER, SELFPAY ==
[2022-11-11 09:53] VITALS: BP 143/72; PULSE 83; RESP 16; TEMP 36.3; O2SAT 97; BMI 35.4
[2022-11-11] MEDS: DENOSUMAB 60 MG/ML SC (09:58)
== END 2022-11-11 09:46 | disposition home or self-care (01) ==
PROVIDERS: PCP Family Medicine; Referring Provider Family Medicine; Visit Provider Family Medicine
DX: M81.0 Age-related osteoporosis without current pathological fracture (principal)
CPT/HCPCS: 96372; J0897

== ENCOUNTER → 2022-11-21 | Outpatient (CLI) | payer MEDICARE, OTHER, SELFPAY ==
--- NOTE | 2022-11-21 07:28 | BI_ITS ---
MAMMOGRAPHY - BILATERAL SCREENING REASON FOR EXAM: Female, 67 years old. Routine annual screening examination. PERTINENT HISTORY: Mother with breast cancer. Aunts with breast cancer. TECHNIQUE: Digital bilateral breast hao (3D mammographic acquisition) in the CC and MLO projections. 2-D mediolateral oblique (MLO) and craniocaudad (CC) views of both breasts were obtained. CAD: Full Field Digital Mammography with Computer Added Detection was performed. COMPARISON: Comparison is made with prior study dated November 18, 2021 and November 16, 2020. FINDINGS: Breast Composition: The breasts are heterogeneously dense, which may obscure small masses. There are no dominant masses or suspicious calcifications. Stable 5.9 mm well-defined nodule in the upper lateral aspect of the right breast. Recent sonogram demonstrated this to be a small cyst. No other significant abnormalities are identified. There has been no significant change since the prior study. BI/SCRN MAMM (CAD)W/HAO BILAT IMPRESSION: Stable bilateral screening mammogram. Yearly follow-up mammogram recommended. (A) ASSESSMENT CATEGORY: BIRADS Category 2: Benign. A letter regarding these results will be sent to the patient by the facility within 30 days. Approximately 10% of breast cancers are not detected by mammography. A normal mammogram should not delay biopsy of a clinically suspicious abnormality. [id number] Electronically Signed: Gavino Johnson MD at 9:37 EDT ,
== END | disposition home or self-care (01) ==
PROVIDERS: PCP Family Medicine; Referring Provider Nurse Practitioner Women's Health; Visit Provider Nurse Practitioner Women's Health
DX: Z12.31 Encounter for screening mammogram for malignant neoplasm of breast (principal)
CPT/HCPCS: 77063; 77067

== ENCOUNTER 2023-05-12 09:49 | Outpatient (CLI) | payer MEDICARE, OTHER, SELFPAY ==
[2023-05-12 10:01] VITALS: BP 145/87; PULSE 103; RESP 16; TEMP 36.4; O2SAT 99; BMI 35.4
--- OUTSIDE RECORDS SUMMARY | 2023-05-12 10:04 | XMS RPT_ITS | CCD ---
Author Name Unknown Address [address] [place] [address] Organization [facility] Care Team Providers Care [employer] Bever[employer] Server Name Role Phone SHELTON PLAAZ MD Primary Care Physician DR. BECK MAYS DO Attending Unavail able SHELTON PLAZA Primary Care Unavailable Results Test Name Value Interpretation Reference Range Facil ity Encounters Encounter Date Encounter Type Care Provider Facility Start: 01-10-2022 End: 01-11-[address] BECK MAYS DO Facility:B Start: 01-10-2022 End: 01-10-[address] BECK MAYS DO [facility] Payers Date Payer Category Payer Medicare [id number] 1955 Unknown [id number] Social History Date Type Detail Facility Tobacco smoking status No Smoking Status Entered [facility] Sex Assigned At Female [facility] Hospital Evaluation + Plan note Note Date & Type Note Facility Evaluation + Plan note No data available for this section [facility] Discharge instructions Note Date & Type Note Facility Hospital Discharge instructions No data available for this section [facility] Progress note Note Date & Type Note Facility Progress note No data available for this section [facility] Summary Purpose Family History No Family History Records Found Advance Directives No Advanced Directives Records Found Additional Source Comments Care Team (unrecognized sect ion and content) Care Team Personnel Name: SHELTON PLAZA MD Member Role: Primary Care Physician Address: Address: [address] [place], [place] [address] [address] INFORMATION SOURCE (unrecogn ized section and content) FOR RECORDS PERTAINING TO PATIENTS WHO ARE OR HAVE BEEN ENROLLED IN A CHEMICAL DEPENDENCY/SUBSTANCEABUSE PROGRAM, SOME INFORMATION MAY BE OMITTED. This clinical summary was aggregated from multiple sources. Caution should be exercised in using it in the provision of clinical care. This summary normalizes information from multiple sources, and as a consequence, information in this document may materially change the coding, format and clinical context of patient data. In addition, data may be omitted in some cases. CLINICAL DECISIONS SHOULD BE BASED ON THE PRIMARY CLINICAL RECORDS. [facility]. provides no warranty or guarantee of the accuracy or completeness of information in this document.
[2023-05-12] MEDS: DENOSUMAB 60 MG/ML SC (10:20)
== END 2023-05-12 09:50 | disposition home or self-care (01) ==
LOC: MEDOUTP 09:50
PROVIDERS: PCP Family Medicine; Referring Provider Family Medicine; Visit Provider Family Medicine
DX: M81.0 Age-related osteoporosis without current pathological fracture (principal)
CPT/HCPCS: 96372; J0897

== ENCOUNTER → 2023-08-04 | Outpatient (CLI) | payer MEDICARE, OTHER, SELFPAY ==
[2023-08-04 12:23] LABS: Absolute Lymphocyte Count 1.88 X10^3/uL (0.83-4.51); Absolute Neutrophil Count 3.3 X10^3/uL (2.0-7.7); Basophil# 0.05 X10^3/uL; Basophil% 0.8 % (0-1); Eosinophil# 0.34 X10^3/uL; Eosinophils% 5.6 % (0-5); Hemoglobin 14.3 g/dL (12.0-15.0); Lymphocyte # 1.88 X10^3/ul (0.83-4.51); Lymphocyte % 30.9 % (19-41); Mean Corp Hgb Conc 32.5 g/dL (32-36); Mean Corpuscular Hgb 28.6 pg (27.0-32.0); Mean Platelet Vol. 9.8 fl (6.2-12.0); Monocyte# 0.49 X10^3/uL; NRBC Flagged by Analyzer 0 % (0-5); Neutrophil % 54.2 % (47-70); Platelet Count 313 K/mm3 (150-450); RBC Distribution Width CV 12.7 % (11.6-14.6); RBC Distribution Width SD 40.7 fl (35.1-43.9); White Blood Count 6.1 K/mm3 (4.4-11.0)
[2023-08-04 13:01] LABS: Vitamin D,25 Hydroxy 59.8 ng/mL
[2023-08-04 13:13] LABS: AST(SGOT) 24 U/L (15-37); Alanine Aminotransfer ALT/SGPT 36 U/L (13-56); Albumin, Serum 3.8 g/dL (3.2-5.0); Alkaline Phosphatase 94 U/L (45-117); Anion Gap 7 (5-15); BUN 17 mg/dL (7-18); BUN/Creat Ratio 15.9 RATIO (10-20); Calcium,Total 9.9 mg/dL (8.5-10.1); Chloride 107 mmol/L (98-107); Cholesterol 206 mg/dL (200); Creatinine, Serum 1.07 mg/dL (0.55-1.02); EST Glomerular Filtration Rate 54 mL/min (>60); Est Glom Filt Rate - Afr Amer 66 mL/min (>60); Globulin 3.7 g/dL (2.2-4.2); Glucose 128 mg/dL (74-106); High Density Lipoprotein 75 mg/dL; Potassium 3.9 mmol/L (3.5-5.1); Protein, Total 7.5 g/dL (6.4-8.2); Sodium Level 138 mmol/L (136-145); Thyroid Stim Hormone (TSH) 0.06 uIU/mL (0.358-3.74); Triglycerides 123 mg/dL; Very Low Density Lipoprotein 25 mg/dL (5-40)
[2023-08-04 13:44] LABS: Hemoglobin A1c 5.6 % (3.8-5.6)
== END | disposition home or self-care (01) ==
LOC: BFHLAB 09:15
PROVIDERS: PCP Family Medicine; Visit Provider Family Medicine
DX: I10 Essential (primary) hypertension (principal); E78.5 Hyperlipidemia, unspecified; E03.9 Hypothyroidism, unspecified; M81.0 Age-related osteoporosis without current pathological fracture; R73.01 Impaired fasting glucose
CPT/HCPCS: 36415; 80053; 80061; 82306; 83036; 84443; 85025

== ENCOUNTER → 2023-10-13 | Outpatient (CLI) | payer MEDICARE, OTHER, SELFPAY ==
[2023-10-13 11:05] LABS: Thyroid Stim Hormone (TSH) 4.34 uIU/mL (0.358-3.74)
== END | disposition home or self-care (01) ==
LOC: MTLAB 08:21
PROVIDERS: PCP Family Medicine; Referring Provider Family Medicine; Visit Provider Family Medicine
DX: E03.9 Hypothyroidism, unspecified (principal)
CPT/HCPCS: 36415; 84439; 84443

== ENCOUNTER 2023-11-10 09:54 | Outpatient (CLI) | payer MEDICARE, OTHER, SELFPAY ==
[2023-11-10 10:12] VITALS: BP 139/72; PULSE 95; RESP 16; TEMP 35.9; O2SAT 98; BMI 35.4
[2023-11-10] MEDS: DENOSUMAB 60 MG/ML SC (10:13)
== END 2023-11-10 23:59 | disposition home or self-care (01) ==
LOC: MEDOUTP 09:54
PROVIDERS: PCP Family Medicine; Referring Provider Family Medicine; Visit Provider Family Medicine
DX: M81.0 Age-related osteoporosis without current pathological fracture (principal)
CPT/HCPCS: 96372; J0897

== ENCOUNTER → 2023-11-27 | Outpatient (CLI) | payer MEDICARE, OTHER, SELFPAY ==
--- NOTE | 2023-11-27 07:27 | BI_ITS ---
MAMMOGRAPHY - BILATERAL SCREENING REASON FOR EXAM: Female, 68 years old. Routine annual screening examination. PERTINENT HISTORY: Mother with breast cancer. Aunts with breast cancer. TECHNIQUE: Digital bilateral breast hao (3D mammographic acquisition) in the CC and MLO projections. 2-D mediolateral oblique (MLO) and craniocaudad (CC) views of both breasts were obtained. CAD: Full Field Digital Mammography with Computer Added Detection was performed. COMPARISON: Comparison is made with prior study dated November 21, 2022 and November 18, 2021. FINDINGS: Breast Composition: The breasts are heterogeneously dense, which may obscure small masses. There are no dominant masses or suspicious calcifications. Stable 6 mm well-defined nodule in the upper lateral aspect of the right breast prior sonogram demonstrated this to be a small cyst. No other significant abnormalities are identified. There has been no significant change since the prior study. BI/SCRN MAMM (CAD)W/HAO BILAT IMPRESSION: Stable bilateral screening mammogram. Yearly follow-up mammogram recommended. (A) ASSESSMENT CATEGORY: BIRADS Category 2: Benign. A letter regarding these results will be sent to the patient by the facility within 30 days. Approximately 10% of breast cancers are not detected by mammography. A normal mammogram should not delay biopsy of a clinically suspicious abnormality. [id number] Electronically Signed: Gavino Johnson MD at 9:08 EDT ,
== END | disposition home or self-care (01) ==
LOC: OPBI 07:23
PROVIDERS: PCP Family Medicine; Referring Provider Family Medicine; Visit Provider Family Medicine
DX: Z12.31 Encounter for screening mammogram for malignant neoplasm of breast (principal); Z80.3 Family history of malignant neoplasm of breast
CPT/HCPCS: 77063; 77067

== ENCOUNTER 2024-05-17 09:47 | Outpatient (CLI) | payer MEDICARE, OTHER, SELFPAY ==
[2024-05-17 09:58] VITALS: BP 142/74; PULSE 104; RESP 16; TEMP 36.3; O2SAT 99; BMI 35.4
[2024-05-17] MEDS: DENOSUMAB 60 MG/ML SC (10:01)
== END 2024-05-17 23:59 | disposition home or self-care (01) ==
LOC: MEDOUTP 09:49
PROVIDERS: PCP Family Medicine; Referring Provider Family Medicine; Visit Provider Family Medicine
DX: M81.0 Age-related osteoporosis without current pathological fracture (principal)
CPT/HCPCS: 96372; J0897

== ENCOUNTER → 2024-08-06 | Outpatient (CLI) | payer MEDICARE, OTHER, SELFPAY ==
[2024-08-06 12:44] LABS: Absolute Lymphocyte Count 1.21 X10^3/uL (0.83-4.51); Basophil# 0.05 X10^3/uL; Basophil% 1.3 % (0-1); Eosinophil# 0.16 X10^3/uL; Eosinophils% 4.2 % (0-5); Hematocrit 42.4 % (37-47); Hemoglobin 13.9 g/dL (12.0-15.0); Lymphocyte # 1.21 X10^3/ul (0.83-4.51); Lymphocyte % 31.6 % (19-41); Mean Corp Hgb Conc 32.8 g/dL (32-36); Mean Corpuscular Hgb 28.7 pg (27.0-32.0); Mean Corpuscular Volume 87.4 fL (81-99); Mean Platelet Vol. 10.1 fl (6.2-12.0); Monocyte# 0.41 X10^3/uL; Monocyte% 10.7 % (0-10); NRBC Flagged by Analyzer 0 % (0-5); Neutrophil # 1.99 X10^3/uL (2.7-7.7); Neutrophil % 51.9 % (47-70); Platelet Count 276 K/mm3 (150-450); RBC Distribution Width CV 12.9 % (11.6-14.6); RBC Distribution Width SD 41.1 fl (35.1-43.9); Red Blood Count 4.85 M/mm3 (4.2-5.4); White Blood Count 3.8 K/mm3 (4.4-11.0)
[2024-08-06 12:57] LABS: Hemoglobin A1c 5.8 % (<=5.6)
[2024-08-06 13:29] LABS: ALB/GLOB Ratio 1.6 RATIO (0.9-2.4); AST(SGOT) 28 U/L (<=31); Alanine Aminotransfer ALT/SGPT 26 U/L (<=34); Albumin, Serum 4.4 g/dL (3.4-4.8); Alkaline Phosphatase 86 U/L (35-104); Anion Gap 13 (5-15); BUN 17 mg/dL (4-19); BUN/Creat Ratio 17.5 RATIO (10-20); Calcium,Total 9.3 mg/dL (7.6-11.0); Carbon Dioxide 19.2 mmol/L (21.0-32.0); Chloride 108 mmol/L (98-108); Cholesterol 156 mg/dL (<=200); Creatinine, Serum 0.97 mg/dL (0.70-1.20); EST Glomerular Filtration Rate 63 (>60); Globulin 2.7 g/dL (2.2-4.2); Glucose 105 mg/dL (70-99); High Density Lipoprotein 61 mg/dL; Low Density Lipoprotein Calc. 73 mg/dL; Potassium 4.1 mmol/L (3.3-5.1); Protein, Total 7.1 g/dL (5.9-8.4); Sodium Level 140 mmol/L (133-145); Thyroid Stim Hormone (TSH) 0.997 uIU/mL (0.300-4.200); Total Bilirubin 0.39 mg/dL (0.00-1.30); Triglycerides 112 mg/dL; Very Low Density Lipoprotein 22 mg/dL (5-40); Vitamin D,25 Hydroxy 52.8 ng/mL (30-100); cholesterol:hdl ratio screen 2.57
== END | disposition home or self-care (01) ==
LOC: BFHLAB 09:34
PROVIDERS: PCP Family Medicine; Visit Provider Family Medicine
DX: I10 Essential (primary) hypertension (principal); E78.5 Hyperlipidemia, unspecified; E03.9 Hypothyroidism, unspecified; M81.0 Age-related osteoporosis without current pathological fracture; R73.01 Impaired fasting glucose
CPT/HCPCS: 36415; 80053; 80061; 82306; 83036; 84439; 84443; 85025

== ENCOUNTER 2024-11-15 09:52 | Outpatient (CLI) | payer MEDICARE, OTHER, SELFPAY ==
[2024-11-15 10:15] VITALS: BP 146/73; PULSE 79; RESP 16; TEMP 36.3; O2SAT 100; BMI 34.2
[2024-11-15] MEDS: DENOSUMAB 60 MG/ML SC (10:26)
== END 2024-11-15 23:59 | disposition home or self-care (01) ==
LOC: MEDOUTP 09:52
PROVIDERS: PCP Family Medicine; Referring Provider Family Medicine; Visit Provider Family Medicine
DX: M81.0 Age-related osteoporosis without current pathological fracture (principal)
CPT/HCPCS: 96372; J0897

== ENCOUNTER → 2024-11-27 | Outpatient (CLI) | payer MEDICARE, OTHER, SELFPAY ==
--- NOTE | 2024-11-27 10:10 | BI_ITS ---
EXAM: SCRN MAMM (CAD)W/HAO BILAT DATE: 11/27/2024 CLINICAL HISTORY: F, Age 69 y/o , SCREENING TECHNIQUE: SCRN MAMM (CAD)W/HAO BILAT COMPARISON: Prior exam(s) dated 11/27/2023, 11/21/2022, 11/10/2021. FINDINGS: TISSUE DENSITY: There are scattered areas of fibroglandular density. Bilateral Breast Mammographic Findings: No significant masses, calcifications or other abnormalities are identified. BI/SCRN MAMM (CAD)W/HAO BILAT IMPRESSION: There is no mammographic evidence of malignancy. OVERALL FINAL ASSESSMENT BI-RADS 1: NEGATIVE. RECOMMENDATION: Routine annual follow-up in 1 Year A letter with findings and recommendations will be mailed to the patient. Reading Location: [id number]
--- NOTE | 2024-11-27 10:26 | BD_ITS ---
PROCEDURE: DEXA BONE DENSITY STUDY 11/27/2024 REASON FOR EXAM: F, age 69 y/o . Postmenopausal. TECHNIQUE: DEXA BONE DENSITY STUDY COMPARISON: Prior study dated August 25, 2022. FINDINGS: BMD and T-SCORES Lumbar spine: 0.880 g/cm2, T-score -1.5 Levels: L1 through L4 Change from prior: Improvement of 9%. Left femoral neck: 0.613 g/cm2, T-score -2.1 Femoral neck comparison data not recommended for monitoring change. Left total hip: 0.865 g/cm2, T-score -0.6 Change from prior: Improvement of 4.7%. Right femoral neck: 0.655 g/cm2, T-score -1.7 Femoral neck comparison data not recommended for monitoring change. Right total hip: 0.827 g/cm2, T-score -0.9 Change from prior: Improvement of 7.2%. The World Health Organization has defined the following categories based on bone density: Normal bone density: T-score equal to or greater than -1.0 Osteopenia: T-score between -1.0 and -2.5 Osteoporosis: T-score equal to or less than -2.5 The patient does meet the pharmacological treatment recommendations for prevention of osteoporosis. BD/Dexa Bone Density Study IMPRESSION: OSTEOPENIA. Recommend follow-up as clinically warranted. Reading Location: [id number]
--- OUTSIDE RECORDS SUMMARY | 2024-11-27 12:37 | XMS RPT_ITS | CCD ---
Author Organization [facility] Care Team Providers Care Library Serials Assistant Name Role Phone Dr. Vinnie Leo Primary Care Provider Dr. Vinnie Leo Referring Provider Tali MICA PASTER, MICA PASTER-C Rosa Elena Attending Provider [phone] VINNIE LEO MD Primary Care Physician DR. BECK BARAKAT DO Attending Unavail able VINNIE LEO Primary Care Unavailable Dr. Vinnie Leo Referring Provider Tali MICA PASTER, MICA PASTER-C Rosa Elena Attending Provider [phone] Dr. Papito Fagan Primary Care Provider Dr. Papito Fagan DO Primary Care Provider Dr. Papito Fagan DO Attending Provider Dr. Papito Fagan DO Referring Provider Dr. Papito Fagan DO Primary Care Provider Dr. Papito Fagan DO Attending Provider Dr. Papito Fagan DO Referring Provider Papito Fagan Primary Care Unavailable Papito Fagan Attending Unavailable Papito Fagan Referring Unavailable Papito Fagan Referring Unavailable Papito Fagan Primary Care Unavailable RylanPapito king Attending Unavailable Papito Fagan Primary Care Unavailable Papito Fagan Attending Unavailable Papito Fagan Referring Unavailable Papito Fagan Primary Care Unavailable Rosa Elena Cesar Attending Unavailable Papito Fagan Referring Unavailable Rylan, Papito Primary Care Unavailable Papito Fagan Attending Unavailable Tali Rosa Elena JARQUIN Attending Provider Allergies Allergy Classification Reported Allergen(s) Allergy Type Date of Onset Reaction(s) Facility (12 sources) Penicillins; Translations: [Penicillins] Allergy to substance 11-18-2021 [facility] [place] (12 sources) Shellfish; Translations: [shellfish derived] Allergy to substance 11-18-2021 [facility] Medications Current Medications Medication Drug Class(es) Dates Sig (Normalized) Sig (Original) Albuterol (8 sources) beta2-Adrenergic Agonist Start: 07-09-2018 take 1 puff(s) by inhalation every six hours as needed Albuterol Sulfate Active 1 - 2 PUFF INHALATION EVERY 6 HOURS NEEDED July 08, 2018 11:00pm Start: 07-09-2018 take 1 puff(s) by in halation every six hours as needed Albuterol Sulfate Active 1 - 2 PUFF INHALATION EVERY 6 HOURS NEEDED July 09, 2018 12:00am Start: 07-09-2018 take 1 puff(s) by in halation every six hours as needed Albuterol Sulfate Active 1 - 2 PUFF INHALATION EVERY 6 HOURS NEEDED July 09, 2018 12:00am Albuterol Sulfate 1 PUFF inhaler (3 sources) Start: 07-09-2018 Albuterol Sulfate 1 PUFF inhaler Active 1 - 2 NMA INHALATION EVERY 6 HOURS NEEDED as needed for Sob &/Or Wheezing July 09, 2018 12:00am amLODIPine 5 mg oral tablet (11 sources) Dihydropyridine Calcium Channel Cas Start: 10-11-2017 take 1 tablet by mouth once daily Amlodipine 5 mg tablet Active 5 mg PO DAILY 90 90 0 October 11, 2017 12:00am 24 hr buPROPion hydrochloride 300 mg extended release oral tablet (20 sources) Aminoketone Start: 11-12-2019 take 1 tablet by mouth once daily Bupropion Hcl 300 mg tablet extended release 24 hr Active 300 mg PO DAILY 90 90 0 November 12, 2019 9:59am Start: 07-09-2018 End: 11-12-2019 take 1 tablet by mouth every twenty-four hours Bupropion Hcl 150 MG tablet extended release 24 hr Discontinued 150 mg PO every Monday, , , Sat July 09, 2018 12:00am November 12, 2019 9:59am Start: 07-09-2018 End: 11-12-2019 take 150 mg by mouth once Bupropion Hcl Discontinued 1 50 MG PO every Monday, Tu, Th, Sat July 09, 2018 12:00am November 12, 2019 9:59am Start: 10-11-2017 End: 11-12-2019 take 1 tablet by mouth every twenty-four hours Bupropion Hcl 300 mg tablet extended release 24 hr Discontinued 300 mg PO MOWEFR 39 90 0 October 11, 2017 12:00am November 12, 2019 10:00am cholecalciferol 0.125 mg oral tablet (11 sources) Vitamin D Start: 07-09-2018 Cholecalcifero l (Vitamin D3) 5,000 UNIT tablet Active 5000 U PO MOWEFR July 09, 2018 12:00am Start: 07-09-2018 take 5000 [IU] by mo uth once daily Cholecalciferol (Vitamin D3) Active 5000 UNIT PO DAILY July 09, 2018 12:00am clobetasol propionate 0.0005 mg/mg topical ointment (20 sources) Corticosteroid Start: 07-02-2023 End: 11-27-2024 Clobetasol 0.05 % ointment Active 1 NMA TOPICAL .COMPLEX 15 2 November 27, 2024 8:21am 1 applic topical apply small amount daily and massage for 5 days prn. Start: 11-18-2021 End: 07-02-2023 Clobetasol 0.05 % ointment D iscontinued 1 NMA TOPICAL .COMPLEX 15 2 July 18, 2022 1:41pm July 02, 2023 4:19pm 1 applic topical apply bid X 2 weeks, daily X 2 weeks then prn. Small amount and massge in; famotidine 40 mg oral tablet (3 sources) Histamine-2 Receptor Antagonist Start: 05-17-2024 take 1 tablet by mouth once daily as needed Famotidine 40 mg tablet Active 40 mg PO DAILY NEEDED May 17, 2024 1:00am gerd 30 actuat fluticasone furoate 0.2 mg/actuat / vilanterol 0.025 mg/actuat dry powder inhaler (3 sources) Corticosteroid, beta2-Adrenergic Agonist Start: 11-10-2023 Fluticasone Furoate-Vilanterol (Breo Ellipta) 200-25 mcg/dose blister with device Active 1 NMA INHALATION DAILY November 10, 2023 12:00am levothyroxine sodium 0.125 mg oral tablet (20 sources) l-Thyroxine Start: 11-18-2021 Levothyroxine 125 mcg tablet Active 100 ug PO DAILY 90 90 0 November 18, 2021 8:10am Start: 11-18-2021 take 125 ug by mouth once daily Levothyroxine Active 125 MCG PO DAILY 90 90 November 18, 2021 8:10am Start: 10-11-2017 End: 11-18-2021 Levothyroxine 125 mcg tablet Discontinued 112 ug PO DAILY 90 90 0 October 11, 2017 12:00am November 18, 2021 8:11am Start: 10-11-2017 End: 11-18-2021 take 112 ug by mouth once daily Levothyroxine Discontinued 112 MCG PO DAILY 90 90 October 11, 2017 12:00am November 18, 2021 8:11am meclizine hydrochloride 25 mg chewable tablet (2 sources) Antiemetic Start: 11-15-2024 take 1 tablet by mouth once daily Meclizine (Antivert) 25 mg tablet,chewable Active 25 mg PO DAILY November 15, 2024 12:00am montelukast 10 mg oral tablet (11 sources) Leukotriene Receptor Antagonist Start: 10-11-2017 take 1 tablet by mouth once daily in the evening Montelukast (Singulair) 10 mg tablet Active 10 mg PO EVERY EVENING October 11, 2017 12:00am pravastatin sodium 40 mg oral tablet (11 sources) HMG-CoA Reductase Inhibitor Start: 07-09-2018 take 1 tablet by mouth at bedtime Pravastatin 40 MG tablet Active 40 mg PO AT BEDTIME July 09, 2018 12:00am zolpidem tartrate 5 mg oral tablet (11 sources) gamma-Aminobutyri c Acid-ergic Agonist Start: 07-09-2018 take 1 tablet by mouth at bedtime as needed for sleep Zolpidem 5 MG tablet Active 5 mg PO AT BEDTIME NEEDED as needed for Sleep July 09, 2018 12:00am Completed/Discontinued Medications Medication Drug Class(es) Dates Sig (Normalized) Sig (Original) Fluticasone Propion-Salmeterol (11 sources) Corticosteroid, beta2-Adrenergic Agonist Start: 10-11-2017 End: 11-10-2023 Fluticasone Propion-Salmeterol (Advair Diskus) 500-50 mcg/dose blister with device Discontinued 1 NMA INHALATION TWICE A DAY October 11, 2017 12:00am November 10, 2023 10:11am Start: 10-11-2017 Fluticasone Pr opion-Salmeterol (Advair Diskus) 500-50 mcg/dose blister with device Active 1 INH INHALATION TWICE A DAY October 10, 2017 11:00pm Start: 10-11-2017 Fluticasone Pr opion-Salmeterol (Advair Diskus) 500-50 mcg/dose blister with device Active 1 INH INHALATION TWICE A DAY October 11, 2017 12:00am iron carbonyl 45 mg oral tablet (11 sources) Start: 07-09-2018 End: 11-12-2019 Iron, Carbonyl 45 MG capsule Discontinued 65 mg PO DAILY July 09, 2018 12:00am November 12, 2019 9:59am Start: 07-09-2018 End: 11-12-2019 take 65 mg by mouth once daily Iron, Carbonyl Disconti nued 65 MG PO DAILY July 09, 2018 12:00am November 12, 2019 9:59am liothyronine sodium 0.005 mg oral tablet (11 sources) l-Triiodothyronine Start: 07-09-2018 End: 11-12-2019 take 1 tablet by mouth once daily Liothyronine 5 MCG tablet Discontinued 5 ug PO DAILY July 09, 2018 12:00am November 12, 2019 9:59am Problems Problem Classification Problem Date Documented Da te Episodic/Chronic Asthma (11 sources) Asthma; Translations: [Unspecified asthma, uncomplicated] 11-12-2019 Chronic Essential hypertension (12 sources) Hypertensive disorder; Translations: [Essential (primary) hypertension] Onset: 08-10-2024 11-12-2019 Chronic Genitourinary symptoms and ill-defined conditions (12 sources) Female stress incontinence; Translations: [Stress incontinence (female) (male)] 11-16-2020 Chronic Comment on above: addison. stable Menopausal disorders (15 sources) Atrophic vaginitis; Translations: [Postmenopausal atrophic vaginitis] Chronic Comment on above: defer intervention a t this time Mood disorders (11 sources) Depressive disorder; Translations: [Depression] 11-12-2019 Chronic Osteoarthritis (11 sources) Arthritis; Translations: [Unspecified osteoarthritis, unspecified site] 11-12-2019 Chronic Osteoporosis (1 source) Age-related osteoporosis without current pathological fracture; Translations: [Age-related osteoporosis without current pathological fracture] Onset: 11-20-2024 Chronic Other screening for suspected conditions (not mental disorders or infectious disease) (1 source) Encounter for screening mammogram for malignant neoplasm of breast; Translations: [Encounter for screening mammogram for malignant neoplasm of breast] Onset: 11-25-2024 Episodic Other skin disorders (15 sources) Lichen sclerosus et atrophicus; Translations: [Lichen sclerosus et atrophicus] Chronic Comment on above: clobetesol/well indio ged Thyroid disorders (11 sources) Disorder of thyroid gland; Translations: [Disorder of thyroid, unspecified] 11-12-2019 Episodic Results Test Name Value Interpretation Reference Range Facility Absolute lymphocyte countOrd ered By: Papito Fagan on 08-06-2024 Lymphocytes Auto (Unsp spec) [#/Vol] 1.21 10*3/uL 0.83-4.51 [facility] Absolute neutrophil countOrd ered By: Papito Fagan on 08-06-2024 Neutrophils (Bld) [#/Vol] 2.0 10*3/uL 2.0-7.7 [facility] Anion gap in Serum or Plasma Ordered By: Papito Fagan on 08-06-2024 Anion gap [Moles/Vol] 13 mmol/L 09-05 [facility] Automated lymphocyte count a s percentage of total leukocytesOrdered By: Papito Fagan on 08-06-2024 Lymphocytes/100 WBC Auto (Unsp spec) 31.6 % [facility] BUN/creatinine ratioOrdered By: Papito Fagan on 08-06-2024 Urea nitrogen/Creatinine [Mass ratio] 17.5 mg/mg 10- [facility] Basophil percentageOrdered B y: Papito Fagan on 08-06-2024 Basophils/100 WBC (Bld) 1.3 % High 0-1 [facility] Bilirubin, totalOrdered By: Papito Fagan on 08-06-2024 Bilirubin [Mass/Vol] 0.39 mg/dL 0.00-1.30 [facility] CBC W/Diff, Automatedon 07-235 Absolute Lymph 1.21 X10 3/uL Normal 0.83-4.51 [facility] Comment on above: Performed By: #### L [id number], L501.9985, L506.1001, L500.4050, L100.0100, L500.4100, L506.0400 #### [facility] [address] [place], [address] Absolute Neut 2.0 X10 3/uL Normal 2.0-7.7 [facility] Comment on above: Performed By: #### L [id number], L501.9985, L506.1001, L500.4050, L100.0100, L500.4100, L506.0400 #### [facility] [address] [place], [address] Basophils/100 WBC (Bld) 1.3 % High 0-1 [facility] Comment on above: Performed By: #### L [id number], L501.9985, L506.1001, L500.4050, L100.0100, L500.4100, L506.0400 #### [facility] [address] [place], [address] Eosinophils/100 WBC (Bld) 4.2 % Normal 0-5 [facility] Comment on above: Performed By: #### L [id number], L501.9985, L506.1001, L500.4050, L100.0100, L500.4100, L506.0400 #### [facility] [address] [place], [address] Erythrocyte distribution width (RBC) [Ratio] 12.9 % Normal 11.6-14.6 [facility] Comment on above: Performed By: #### L [id number], L501.9985, L506.1001, L500.4050, L100.0100, L500.4100, L506.0400 #### [facility] [address] [place], [address] Hematocrit (Bld) [Volume fraction] 42.4 % Normal 37-47 [facility] Comment on above: Performed By: #### L [id number], L501.9985, L506.1001, L500.4050, L100.0100, L500.4100, L506.0400 #### [facility] [address] [place], [address] Hemoglobin (Bld) [Mass/Vol] 13.9 g/dL Normal 12.0-15.0 [facility] Comment on above: Performed By: #### L [id number], L501.9985, L506.1001, L500.4050, L100.0100, L500.4100, L506.0400 #### [facility] [address] [place], [address] IG% 0.300 Normal 0.0-0.9 [facility] Comment on above: Result Comment: IG% - Immature Granulocytes (promyelocytes, myelocytes and metamyelocytes) > 1% indicates that a LEFT SHIFT is Present. Performed By: #### L [id number], L501.9985, L506.1001, L500.4050, L100.0100, L500.4100, L506.0400 #### [facility] [address] [place], [address] Lymphocytes/100 WBC (Bld) 31.6 % Normal 19-41 [facility] Comment on above: Performed By: #### L [id number], L501.9985, L506.1001, L500.4050, L100.0100, L500.4100, L506.0400 #### [facility] [address] [place], [address] MCH (RBC) [Entitic mass] 28.7 pg Normal 27.0-32.0 [facility] Comment on above: Performed By: #### L [id number], L501.9985, L506.1001, L500.4050, L100.0100, L500.4100, L506.0400 #### [facility] [address] [place], [address] MCHC (RBC) [Mass/Vol] 32.8 g/dL Normal 32-36 [facility] Comment on above: Performed By: #### L [id number], L501.9985, L506.1001, L500.4050, L100.0100, L500.4100, L506.0400 #### [facility] [address] [place], [address] MCV (RBC) [Entitic vol] 87.4 fL Normal 81-99 [facility] Comment on above: Performed By: #### L [id number], L501.9985, L506.1001, L500.4050, L100.0100, L500.4100, L506.0400 #### [facility] [address] [place], [address] Monocytes/100 WBC (Bld) 10.7 % High 0-10 [facility] Comment on above: Performed By: #### L [id number], L501.9985, L506.1001, L500.4050, L100.0100, L500.4100, L506.0400 #### [facility] [address] [place], [address] Neutrophils/100 WBC (Bld) 51.9 % Normal 47-70 [facility] Comment on above: Performed By: #### L [id number], L501.9985, L506.1001, L500.4050, L100.0100, L500.4100, L506.0400 #### [facility] [address] [place], [address] Nucleated RBC (Bld) [#/Vol] 0 10*3/uL Normal 0-5 [facility] Comment on above: Performed By: #### L [id number], L501.9985, L506.1001, L500.4050, L100.0100, L500.4100, L506.0400 #### [facility] [address] [place], [address] Platelet mean volume (Bld) [Entitic vol] 10.1 fL Normal 6.2-12.0 [facility] Comment on above: Performed By: #### L [id number], L501.9985, L506.1001, L500.4050, L100.0100, L500.4100, L506.0400 #### [facility] [address] [place], [address] Platelets (Bld) [#/Vol] 276 10*3/uL Normal 150-450 [facility] Comment on above: Performed By: #### L [id number], L501.9985, L506.1001, L500.4050, L100.0100, L500.4100, L506.0400 #### [facility] [address] [place], [address] RBC (Bld) [#/Vol] 4.85 10*6/uL Normal 4.2-5.4 [facility] Comment on above: Performed By: #### L [id number], L501.9985, L506.1001, L500.4050, L100.0100, L500.4100, L506.0400 #### [facility] [address] [place], [address] RDW SD 41.1 fl Normal 35.1-43.9 [facility] Comment on above: Performed By: #### L [id number], L501.9985, L506.1001, L500.4050, L100.0100, L500.4100, L506.0400 #### [facility] [address] [place], [address] WBC (Bld) [#/Vol] 3.8 10*3/uL Low 4.4-11.0 [facility] Comment on above: Performed By: #### L [id number], L501.9985, L506.1001, L500.4050, L100.0100, L500.4100, L506.0400 #### [facility] [address] [place], [address] Calculated very low density lipoprotein (VLDL) cholesterol measurementOrdered By: Papito Fagan on 08-06-2024 Calculated very low density lipoprotein (VLDL) cholesterol measurement 22 mg/dL - [facility] VLDL Cholesterol 22 mg/dL [facility] Carbon dioxide, total [Moles /volume] in Central venous bloodOrdered By: Papito Fagan on 08-06-2024 CO2 [Moles/Vol] 19.2 mmol/L Low 21.0-32.0 [facility] Chloride assayOrdered By: Edward Fagan on 08-06-2024 Chloride [Moles/Vol] 108 mmol/L 98-108 [facility] Comprehensive Metabolic Prof ilon 08-06-2024 Albumin [Mass/Vol] 4.4 g/dL Normal 3.4-4.8 [facility] Comment on above: Performed By: #### L [id number], L501.9985, L506.1001, L500.4050, L100.0100, L500.4100, L506.0400 #### [facility] [address] [place], [address] Albumin/Globulin [Mass ratio] 1.6 {ratio} Normal 0.9-2.4 [facility] Comment on above: Performed By: #### L 501.9520, L501.9985, L506.1001, L500.4050, L100.0100, L500.4100, L506.0400 #### [facility] [address] [place], [address] ALK PHOS 86 U/L Normal 35-104 [facility] Comment on above: Performed By: #### L 501.9520, L501.9985, L506.1001, L500.4050, L100.0100, L500.4100, L506.0400 #### [facility] [address] [place], [address] ALT [Catalytic activity/Vol] 26 U/L Normal <=34 [facility] Comment on above: Performed By: #### L 501.9520, L501.9985, L506.1001, L500.4050, L100.0100, L500.4100, L506.0400 #### [facility] [address] [place], [address] AST [Catalytic activity/Vol] 28 U/L Normal <=31 [facility] Comment on above: Performed By: #### L 501.9520, L501.9985, L506.1001, L500.4050, L100.0100, L500.4100, L506.0400 #### [facility] [address] [place], [place], [address] Bilirubin [Mass/Vol] 0.39 mg/dL Normal 0.00-1.30 [facility] Comment on above: Performed By: #### L 501.9520, L501.9985, L506.1001, L500.4050, L100.0100, L500.4100, L506.0400 #### [facility] [address] [place], [address] BUN/CRE 17.5 RATIO Normal 10-20 [facility] Comment on above: Performed By: #### L 501.9520, L501.9985, L506.1001, L500.4050, L100.0100, L500.4100, L506.0400 #### [facility] [address] [place], [address] Calcium [Mass/Vol] 9.3 mg/dL Normal 7.6-11.0 [facility] Comment on above: Performed By: #### L 501.9520, L501.9985, L506.1001, L500.4050, L100.0100, L500.4100, L506.0400 #### [facility] [address] [place], [address] Chloride [Moles/Vol] 108 mmol/L Normal 98-108 [facility] Comment on above: Performed By: #### L 501.9520, L501.9985, L506.1001, L500.4050, L100.0100, L500.4100, L506.0400 #### [facility] [address] [place], [address] CO2 [Moles/Vol] 19.2 mmol/L Low 21.0-32.0 [facility] Comment on above: Performed By: #### L 501.9520, L501.9985, L506.1001, L500.4050, L100.0100, L500.4100, L506.0400 #### [facility] [address] [place], [address] Creatinine [Mass/Vol] 0.97 mg/dL Normal 0.70-1.20 [facility] Comment on above: Performed By: #### L 501.9520, L501.9985, L506.1001, L500.4050, L100.0100, L500.4100, L506.0400 #### [facility] [address] [place], [address] GAP 13 Normal 5-15 [facility] Comment on above: Performed By: #### L 501.9520, L501.9985, L506.1001, L500.4050, L100.0100, L500.4100, L506.0400 #### [facility] [address] [place], [address] GFR/1.73 sq M.predicted among non-blacks MDRD (S/P/Bld) [Vol rate/Area] 63 mL/min/{1.73_m2} Normal >60 [facility] Comment on above: Result Comment: mL/m in/1.73m2 CKD-EPI Creatinine Equation (2020) Performed By: #### L 501.9520, L501.9985, L506.1001, L500.4050, L100.0100, L500.4100, L506.0400 #### [facility] [address] [place], [address] Globulin (S) [Mass/Vol] 2.7 g/dL Normal 2.2-4.2 [facility] Comment on above: Performed By: #### L 501.9520, L501.9985, L506.1001, L500.4050, L100.0100, L500.4100, L506.0400 #### [facility] [address] [place], [address] Glucose [Mass/Vol] 105 mg/dL High 70-99 [facility] Comment on above: Performed By: #### L 501.9520, L501.9985, L506.1001, L500.4050, L100.0100, L500.4100, L506.0400 #### [facility] [address] [place], [address] Potassium [Moles/Vol] 4.1 mmol/L Normal 3.3-5.1 [facility] Comment on above: Performed By: #### L 501.9520, L501.9985, L506.1001, L500.4050, L100.0100, L500.4100, L506.0400 #### [facility] [address] [place], [place], [id number] Sodium [Moles/Vol] 140 mmol/L Normal 133-145 [facility] Comment on above: Performed By: #### L 501.9520, L501.9985, L506.1001, L500.4050, L100.0100, L500.4100, L506.0400 #### [facility] [address] [place], [place], [id number] T PROT 7.1 g/dL Normal 5.9-8.4 [facility] Comment on above: Performed By: #### L 501.9520, L501.9985, L506.1001, L500.4050, L100.0100, L500.4100, L506.0400 #### [facility] [address] [place], [place], [id number] Urea nitrogen [Mass/Vol] 17 mg/dL Normal 4-19 [facility] Comment on above: Performed By: #### L [id number], L501.9985, L506.1001, L500.4050, L100.0100, L500.4100, L506.0400 #### [facility] [address] [place], [place], [id number] Eosinophil percentageOrdered By: Papito Fagan on 08-06-2024 Eosinophils/100 WBC (Bld) 4.2 % 0-5 [facility] Erythrocyte distribution wid th (RBC) [Ratio]Ordered By: Papito Fagan on 08-06-2024 Erythrocyte distribution width (RBC) [Entitic vol] 41.1 fL 35.1-43.9 [facility] Erythrocyte distribution wid th ratioOrdered By: Papito Fagan on 08-06-2024 Erythrocyte distribution width (RBC) [Ratio] 12.9 % 11.6-14.6 [facility] Erythrocyte distribution wid th standard deviationOrdered By: Papito Fagan on 08-06-2024 Erythrocyte distribution width (RBC) [Ratio] 41.1 fl 35.1-43.9 [facility] GFR/1.73 sq M.predicted rand g non-blacks MDRD (S/P/Bld) [Vol rate/Area]Ordered By: Papito Fagan on 08-06-2024 Estimated GFR (MDRD) Non-Af Amer 63 >60 [facility] Comment on above: mL/min/1.73m2 CKD-EP I Creatinine Equation (2020) Glomerular filtration rate ( GFR) estimation/1.73 sq m using serum, plasma, or whole bOrdered By: Papito Fagan on 08-06-2024 GFR/1.73 sq M.predicted among non-blacks MDRD (S/P/Bld) [Vol rate/Area] 63 mL/min/{1.73_m2} >60 [facility] Comment on above: mL/min/1.73m2 CKD-EP I Creatinine Equation (2020) Hematocrit Auto (Bld) [Volum e fraction]Ordered By: Papito Fagan on 08-06-2024 Hematocrit (Bld) [Volume fraction] 42.4 % 37-47 [facility] Hemoglobin A1con 08-06-2024 HbA1c (Bld) [Mass fraction] 5.8 % High <=5.6 [facility] Comment on above: Result Comment: Norm al < 5.7 % Prediabetic 5.7 - 6.4 % Diabetic >or= 6.5 % Please note range changes. Performed By: #### L 501.9520, L501.9985, L506.1001, L500.4050, L100.0100, L500.4100, L506.0400 #### [facility] [address] [place], [address] Hemoglobin A1c percentageOrd ered By: Papito Fagan on 08-06-2024 HbA1c (Bld) [Mass fraction] 5.8 % High <5.7 [facility] Comment on above: Normal < 5.7 % Predi abetic 5.7 - 6.4 % Diabetic >or= 6.5 % Please note range changes. Hemoglobin measurementOrdere d By: Papito Fagan on 08-06-2024 Hemoglobin (Bld) [Mass/Vol] 13.9 g/dL 12.0-15.0 [facility] Immature granulocytes/100 WB C Auto (Bld)Ordered By: Papito Rylan on 08-06-2024 Immature granulocytes/100 WBC (Bld) 0.300 % 0.0-0.9 [facility] Comment on above: IG% - Immature Granu locytes (promyelocytes, myelocytes and metamyelocytes) > 1% indicates that a LEFT SHIFT is Present. LDL calc ser/plasOrdered By: Papito Fagan on 08-06-2024 Cholesterol in LDL [Mass/Vol] 73 mg/dL [facility] Comment on above: Ltbwesygub=969-644 m g/dL & Higher Dbgr=178 mg/dL or greater LDL Cholesterol, Calculated 73 mg/dL [facility] Comment on above: Bgpmhydvpt=536-022 m g/dL & Higher Kcqz=070 mg/dL or greater Laboratory - Chemistry and C hemistry - challengeOrdered By: Papito Fgaan on 08-06-2024 AST [Catalytic activity/Vol] 28 U/L <32 [facility] Lipid Profileon 08-06-2024 CHOL:HDL 2.57 Normal [facility] Comment on above: Performed By: #### L [id number], L501.9985, L506.1001, L500.4050, L100.0100, L500.4100, L506.0400 #### [facility] [address] [place], [place], [id number] Cholesterol [Mass/Vol] 156 mg/dL Normal <=200 [facility] Comment on above: Result Comment: Chol esterol level, Desirable <200 mg/dL Borderline high cholesterol 200-239 mg/dL High cholesterol >=240 mg/dL Recommendations of the NCEP Adult Treatment Panel for the following risk-cutoff thresholds for the [place] population. Performed By: #### L [id number], L501.9985, L506.1001, L500.4050, L100.0100, L500.4100, L506.0400 #### [facility] [address] [place], [address] Cholesterol in HDL [Mass/Vol] 61 mg/dL Normal [facility] Comment on above: Result Comment: Sugey onal Cholesterol Education Program (NCEP) guidelines: <40 mg/dL: Low HDL-cholesterol (major risk factor for CHD) >= 60 mg/dL: High HDL-cholesterol (negative risk factor for CHD) HDL-cholesterol is affected by a number of factors, e.g. smoking, exercise, hormones, sex and age. Performed By: #### L [id number], L501.9985, L506.1001, L500.4050, L100.0100, L500.4100, L506.0400 #### [facility] [address] [place], [address] Cholesterol in LDL [Mass/Vol] 73 mg/dL Normal [facility] Comment on above: Result Comment: Bord wfwerk=089-160 mg/dL Higher Acnh=925 mg/dL or greater Performed By: #### L [id number], L501.9985, L506.1001, L500.4050, L100.0100, L500.4100, L506.0400 #### [facility] [address] [place], [address] Cholesterol in VLDL [Mass/Vol] 22 mg/dL Normal 5-40 [facility] Comment on above: Performed By: #### L [id number], L501.9985, L506.1001, L500.4050, L100.0100, L500.4100, L506.0400 #### [facility] [address] [place], [address] Triglyceride [Mass/Vol] 112 mg/dL Normal [facility] Comment on above: Result Comment: The drugs N-Acetylcysteine and Metamizole may falsely depress this assay. Normal range: <150 mg/dL Borderline High: 150-199 mg/dL High: 200-499 mg/dL Very High: >500 mg/dL Performed By: #### L [id number], L501.9985, L506.1001, L500.4050, L100.0100, L500.4100, L506.0400 #### [facility] [address] [place], [place], [address] Lymphocytes Auto (Unsp spec) [#/Vol]Ordered By: Papito Fagan on 08-06-2024 Lymphocytes (Bld) [#/Vol] 1.21 10*3/uL 0.83-4.5 1 [facility] Lymphocytes/100 WBC Auto (Un sp spec)Ordered By: Papito Fagan on 08-06-2024 Lymphocytes/100 WBC (Bld) 31.6 % 19-41 [facility] MCV (mean corpuscular volume ) determinationOrdered By: Papito Fagan on 08-06-2024 MCV (RBC) [Entitic vol] 87.4 fL 81-99 [facility] Mean corpuscular hemoglobin (MCH) determinationOrdered By: Papito Fagan on 08-06-2024 MCH (RBC) [Entitic mass] 28.7 pg 27.0-32.0 [facility] Mean corpuscular hemoglobin concentration (MCHC) determinationOrdered By: Papito Fagan on 08-06-2024 MCHC (RBC) [Mass/Vol] 32.8 g/dL 32-36 [facility] Mean platelet volume determi nationOrdered By: Papito Fagan on 08-06-2024 Platelet mean volume (Bld) [Entitic vol] 10.1 fL 6.2-12.0 [facility] Monocyte percentageOrdered B y: Papito Fagan on 08-06-2024 Monocytes/100 WBC (Bld) 10.7 % High 0-10 [facility] Neutrophil percentageOrdered By: Papito Fagan on 08-06-2024 Neutrophils/100 WBC (Bld) 51.9 % 47-70 [facility] Nucleated red blood cell per centageOrdered By: Papito Fagan on 08-06-2024 Nucleated RBC/100 WBC (Bld) [Ratio] 0 % 0-5 [facility] Platelet countOrdered By: Edward Fagan on 08-06-2024 Platelets (Bld) [#/Vol] 276 10*3/uL 150-450 [facility] Potassium (Unsp spec) [Mass/ Vol]Ordered By: Papito Fagan on 08-06-2024 Potassium [Moles/Vol] 4.1 mmol/L 3.3-5.1 [facility] Potassium measurement (mass/ volume)Ordered By: Papito Fagan on 08-06-2024 Potassium (Unsp spec) [Mass/Vol] 4.1 mmol/L 3.3-5.1 [facility] RBC Auto (Bld) [#/Vol]Ordere d By: Papito Fagan on 08-06-2024 RBC (Bld) [#/Vol] 4.85 10*6/uL 4.2-5.4 [facility] Screening total cholesterol/ high density lipoprotein (HDL) cholesterol ratioOrdered By: Papito Fagan on 08-06-2024 Cholesterol.total/Cholest alka in HDL [Mass ratio] 2.57 {ratio} [facility] Serum creatinine measurement (mass/volume)Ordered By: Papito Fagan on 08-06-2024 Creatinine [Mass/Vol] 0.97 mg/dL 0.70-1.20 [facility] Serum globulin measurementOr dered By: Papito Fagan on 08-06-2024 Globulin (S) [Mass/Vol] 2.7 g/dL 2.2-4.2 [facility] Serum glucose measurement (m ass/volume)Ordered By: Papito Fagan on 08-06-2024 Glucose [Mass/Vol] 105 mg/dL High 70-99 [facility] Serum or plasma alanine chandra otransferase (ALT) measurementOrdered By: Papito Fagan on 08-06-2024 ALT [Catalytic activity/Vol] 26 U/L <35 [facility] Serum or plasma albumin satish urement (mass/volume)Ordered By: Papito Fagan on 08-06-2024 Albumin [Mass/Vol] 4.4 g/dL 3.4-4.8 [facility] Serum or plasma albumin/glob ulin mass ratioOrdered By: Papito Fagan on 08-06-2024 Albumin/Globulin [Mass ratio] 1.6 {ratio} 0.9-2.4 [facility] Serum or plasma alkaline theron sphatase measurementOrdered By: Papito Fagan on 08-06-2024 ALP [Catalytic activity/Vol] 86 U/L 35-104 [facility] Serum or plasma calcium satish urement (mass/volume)Ordered By: Papito Fagan on 08-06-2024 Calcium [Mass/Vol] 9.3 mg/dL 7.6-11.0 [facility] Serum or plasma cholesterol in HDL measurement (mass/volume)Ordered By: Papito Fagan on 08-06-2024 Cholesterol in HDL [Mass/Vol] 61 mg/dL >40 [facility] Comment on above: National Cholesterol Education Program (NCEP) guidelines:<40 mg/dL: Low HDL-cholesterol (major risk factor for CHD)>= 60 mg/dL: High HDL-cholesterol (negative risk factor for CHD)HDL-cholesterol is affected by a number of factors, e.g. smoking, exercise, hormones, sex and age. Serum or plasma cholesterol measurement (mass/volume)Ordered By: Papito Fagan on 08-06-2024 Cholesterol [Mass/Vol] 156 mg/dL <201 [facility] Comment on above: Cholesterol level, D esirable <200 mg/dLBorderline high cholesterol 200-239 mg/dLHigh cholesterol >=240 mg/dLRecommendations of the NCEP Adult Treatment Panel for the following risk-cutoff thresholds for the [place] population. Serum or plasma urea nitroge n measurement (mass/volume)Ordered By: Papito Fagan on 08-06-2024 Urea nitrogen [Mass/Vol] 17 mg/dL 4-19 [facility] Sodium levelOrdered By: Papito Fagan on 08-06-2024 Sodium [Moles/Vol] 140 mmol/L 133-145 [facility] T4 Free Directon 08-06-2024 T4 FREE DIRECT 1.50 ng/dL High 0.76-1.46 [facility] Comment on above: Performed By: #### L [id number], L501.9985, L506.1001, L500.4050, L100.0100, L500.4100, L506.0400 #### [facility] [address] [place], [place], [id number] T4 freeOrdered By: Papito cotton on 08-06-2024 Free T4 [Mass/Vol] 1.50 ng/dL High 0.76-1.46 [facility] TSH DL <= 0.005 mIU/L QnOrde red By: Papito Fagan on 08-06-2024 Thyroid Stimulating Hormone (TSH) 0.997 uIU/mL 0.300-4.200 [facility] TSH Qn 0.997 uIU/mL 0.300-4.200 [facility] Thyroid Stim Hormone (TSH)on 08-06-2024 TSH 0.997 uIU/mL Normal 0.300-4.200 [facility] Comment on above: Performed By: #### L [id number], L501.9985, L506.1001, L500.4050, L100.0100, L500.4100, L506.0400 #### [facility] [address] [place] [address], [address] Total proteinOrdered By: Sultana Fagan on 08-06-2024 Protein [Mass/Vol] 7.1 g/dL 5.9-8.4 [facility] Triglycerides measurementOrd ered By: Papito Fagan on 08-06-2024 Triglyceride [Mass/Vol] 112 mg/dL <199 [facility] Comment on above: The drugs N-Acetylcy steine and Metamizole may falsely depress this assay. Normal range: <150 mg/dLBorderline High: 150-199 mg/dLHigh: 200-499 mg/dLVery High: >500 mg/dL Vitamin D, 25-hydroxyOrdered By: Papito Fagan on 08-06-2024 Vitamin D 25-Hydroxy 52.8 ng/mL 30-100 [facility] Comment on above: Vitamin D StatusDefi ciency: <20 ng/mL (50nmol/L)Insufficiency: 20-30 ng/mL (50-75 nmol/L)Sufficiency: 30-100 ng/mL (75-250 nmol/L)Toxicity: >100 ng/mL (>250 nmol/L) Vitamin D,25 Hydroxyon 08-06 Vitamin D 25-OH 52.8 ng/mL Normal 30-100 [facility] Comment on above: Result Comment: Flora min D Status Deficiency: <20 ng/mL (50nmol/L) Insufficiency: 20-30 ng/mL (50-75 nmol/L) Sufficiency: 30-100 ng/mL (75-250 nmol/L) Toxicity: >100 ng/mL (>250 nmol/L) Performed By: #### L [id number], L501.9985, L506.1001, L500.4050, L100.0100, L500.4100, L506.0400 #### [facility] [address] [place], [place], [id number] White blood cell (WBC) count Ordered By: Papito Fagan on 08-06-2024 WBC (Bld) [#/Vol] 3.8 10*3/uL Low 4.4-11.0 [facility] Absolute lymphocyte countOrd ered By: Papito Fagan on 08-04-2023 Lymphocytes Auto (Unsp spec) [#/Vol] 1.88 10*3/uL 0.83-4.51 [facility] Automated lymphocyte count a s percentage of total leukocytesOrdered By: Papito Fagan on 08-04-2023 Lymphocytes/100 WBC Auto (Unsp spec) 30.9 % 19-41 [facility] Basophil percentageOrdered B y: Papito Fagan on 08-04-2023 Basophils/100 WBC (Bld) 0.8 % 0-1 [facility] Bilirubin [Mass/Vol] 0.40 mg/dL 0.20-1.00 [facility] Comment on above: For patients on eltr ombopag therapy, use of Dimension Reading TBIL is not recommended. Chloride [Moles/Vol] 107 mmol/L 98-107 [facility] Cholesterol [Mass/Vol] 206 mg/dL <200 [facility] Comment on above: <200 mg/dL Desirable 200-240 mg/dL Borderline >240 mg/dL High Risk Eosinophils/100 WBC (Bld) 5.6 % 0-5 [facility] Glucose [Mass/Vol] 128 mg/dL 74-106 [facility] Comment on above: Fasting Glucose resu lt greater than or equal to 126 mg/dL suggests DIABETES MELLITUS per A.D.A. criteria. Hemoglobin (Bld) [Mass/Vol] 14.3 g/dL 12.0-15.0 [facility] Monocytes/100 WBC (Bld) 8.0 % 0-10 [facility] Neutrophils (Bld) [#/Vol] 3.3 10*3/uL 2.0-7.7 [facility] Neutrophils/100 WBC (Bld) 54.2 % 47-70 [facility] Potassium [Moles/Vol] 3.9 mmol/L 3.5-5.1 [facility] Protein [Mass/Vol] 7.5 g/dL 6.4-8.2 [facility] Sodium [Moles/Vol] 138 mmol/L 136-145 [facility] Triglyceride [Mass/Vol] 123 mg/dL <199 [facility] Comment on above: The drugs N-Acetylcy steine and Metamizole may falsely depress this assay.Serum Triglycerides Reference Interval Normal <150 mg/dL Borderline high 150 - 199 mg/dL High 200 - 499 mg/dL Very High > or = 500 mg/dL WBC (Bld) [#/Vol] 6.1 10*3/uL 4.4-11.0 [facility] Determination of erythrocyte mean corpuscular volume (MCV)Ordered By: Papito Fagan on 08-04-2023 MCV (RBC) [Entitic vol] 88.0 fL 81-99 [facility] Erythrocyte distribution wid th ratioOrdered By: Papito Fagan on 08-04-2023 Erythrocyte distribution width (RBC) [Ratio] 12.7 % 11.6-14.6 [facility] Erythrocyte distribution wid th standard deviationOrdered By: Papito Fagan on 08-04-2023 Erythrocyte distribution width (RBC) [Entitic vol] 40.7 fL 35.1-43.9 [facility] Hematocrit Auto (Bld) [Volum e fraction]Ordered By: Papito Fagan on 08-04-2023 Hematocrit (Bld) [Volume fraction] 44.0 % 37-47 [facility] Immature granulocytes/100 WB C Auto (Bld)Ordered By: Papito Fagan on 08-04-2023 Immature granulocytes/100 WBC (Bld) 0.500 % 0.0-0.9 [facility] Comment on above: IG% - Immature Granu locytes (promyelocytes, myelocytes and metamyelocytes) > 1% indicates that a LEFT SHIFT is Present. Laboratory - Chemistry and C hemistry - challengeOrdered By: Papito Fagan on 08-04-2023 Albumin/Globulin [Mass ratio] 1.0 {ratio} 0.9-2.4 [facility] ALP [Catalytic activity/Vol] 94 U/L 45-117 [facility] ALT [Catalytic activity/Vol] 36 U/L 13-56 [facility] Cholesterol in HDL [Mass/Vol] 75 mg/dL >40 [facility] Comment on above: The drugs N-Acetylcy steine and Metamizole may falsely depress this assay. Reference Range HDL <40 mg/dL Low HDL Cholesterol HDL >or= 60 mg/dL High HDL Cholesterol Cholesterol in LDL [Mass/Vol] 106 mg/dL 0-130 [facility] CO2 [Moles/Vol] 24.0 mmol/L 21.0-32.0 [facility] Globulin (S) [Mass/Vol] 3.7 g/dL 2.2-4.2 [facility] Urea nitrogen/Creatinine [Mass ratio] 15.9 mg/mg 10-20 [facility] - Hematology and Cell countsOrdered By: Papito Fagan on 08-04-2023 MCH (RBC) [Entitic mass] 28.6 pg 27.0-32.0 [facility] MCHC (RBC) [Mass/Vol] 32.5 g/dL 32-36 [facility] Nucleated RBC/100 WBC (Bld) [Ratio] 0 % 0-5 [facility] Platelet mean volume (Bld) [Entitic vol] 9.8 fL 6.2-12.0 [facility] Platelets (Bld) [#/Vol] 313 10*3/uL 150-450 [facility] No Panel InformationOrdered By: Papito Fagan on 08-04-2023 Estimated GFR (MDRD) Amer 66 mL/min >60 [facility] Comment on above: GFR Calc Estimated GFR (MDRD) Non-Af Amer 54 mL/min >60 [facility] Comment on above: Non- GFR Calc Vitamin D 25-Hydroxy 59.8 ng/mL [facility] Comment on above: Vitamin D 25(OH) Sta tus Range Deficiency <20 ng/mL (50nmol/L) Insufficiency 20 - 30 ng/mL (50 - 75 nmol/L) Sufficiency 30 - 100 ng/mL (75 - 250 nmol/L) Toxicity >100 ng/mL (>250 nmol/L) VLDL Cholesterol 25 mg/dL 5-40 [facility] RBC Auto (Bld) [#/Vol]Ordere d By: Papito Fagan on 08-04-2023 RBC (Bld) [#/Vol] 5.00 10*6/uL 4.2-5.4 [facility] Serum or plasma calcium satish urement (mass/volume)Ordered By: Papito Fagan on 08-04-2023 Calcium [Mass/Vol] 9.9 mg/dL 8.5-10.1 [facility] Serum or plasma creatinine m easurement (mass/volume)Ordered By: Papito Fagan on 08-04-2023 Creatinine [Mass/Vol] 1.07 mg/dL 0.55-1.02 [facility] Comment on above: The validity of the calculated GFR & GFRAA in patients over 70 years has not been determined. Clinical correlation is essential. Serum or plasma thyroid stim ulating hormone (TSH) measurement (units/volume)Ordered By: Papito Fagan on 08-04-2023 TSH Qn 0.06 uIU/mL 0.358-3.74 [facility] Serum or plasma urea nitroge n measurement (mass/volume)Ordered By: Papito Fagan on 08-04-2023 Urea nitrogen [Mass/Vol] 17 mg/dL 7-18 [facility] Thin prep Papanicolaou smear with manual screeningOrdered By: Papito Fagan on 08-04-2023 Thin prep Papanicolaou smear with manual screening 3.8 g/dL 3.2-5.0 [facility] Thin prep Papanicolaou smear with manual screening 24 U/L 15-37 [facility] Thin prep Papanicolaou smear with manual screening 7 5-15 [facility] Whole blood hemoglobin A1c/t otal hemoglobin ratio (mass fraction)Ordered By: Papito Fagan on 08-04-2023 HbA1c (Bld) [Mass fraction] 5.6 % 3.8-5.6 [facility] Comment on above: Normal < 5.7 % Predi abetic 5.7 - 6.4 % Diabetic >or= 6.5 % Please note range changes. Absolute lymphocyte countOrd ered By: Dr. Fagan on 07-12-2022 Lymphocytes Auto (Unsp spec) [#/Vol] 1.76 10*3/uL 0.83-4.51 [facility] Basophil percentageOrdered B y: Dr. Fagan on 07-12-2022 Basophils/100 WBC (Bld) 1.2 % 0-1 [facility] Bilirubin [Mass/Vol] 0.40 mg/dL 0.20-1.00 [facility] Comment on above: For patients on eltr ombopag therapy, use of Dimension Reading TBIL is not recommended. Chloride [Moles/Vol] 109 mmol/L 98-107 [facility] Cholesterol [Mass/Vol] 215 mg/dL <200 [facility] Comment on above: <200 mg/dL Desirable 200-240 mg/dL Borderline >240 mg/dL High Risk Eosinophils/100 WBC (Bld) 5.4 % 0-5 [facility] Glucose [Mass/Vol] 109 mg/dL 74-106 [facility] Comment on above: Fasting Glucose resu lt from 100 to 125 mg/dL suggests IMPAIRED HOMEOSTASIS per A.D.A. criteria. Neutrophils (Bld) [#/Vol] 3.1 10*3/uL 2.0-7.7 [facility] Neutrophils/100 WBC (Bld) 53.1 % 47-70 [facility] Potassium [Moles/Vol] 3.7 mmol/L 3.5-5.1 [facility] Protein [Mass/Vol] 7.3 g/dL 6.4-8.2 [facility] Sodium [Moles/Vol] 141 mmol/L 136-145 [facility] Triglyceride [Mass/Vol] 167 mg/dL <199 [facility] Comment on above: The drugs N-Acetylcy steine and Metamizole may falsely depress this assay.Serum Triglycerides Reference Interval Normal <150 mg/dL Borderline high 150 - 199 mg/dL High 200 - 499 mg/dL Very High > or = 500 mg/dL WBC (Bld) [#/Vol] 5.7 10*3/uL 4.4-11.0 [facility] Blood erythrocytes count (nu mber/volume)Ordered By: Dr. Fagan on 07-12-2022 RBC (Bld) [#/Vol] 5.05 10*6/uL 4.2-5.4 [facility] Blood hemoglobin measurement (mass/volume)Ordered By: Dr. Fagan on 07-12-2022 Hemoglobin (Bld) [Mass/Vol] 14.2 g/dL 12.0-15.0 [facility] Blood lymphocytes/100 leukoc ytesOrdered By: Dr. Fagan on 07-12-2022 Lymphocytes/100 WBC (Bld) 30.7 % 19-41 [facility] Blood monocytes/100 leukocyt esOrdered By: Dr. Fagan on 07-12-2022 Monocytes/100 WBC (Bld) 9.1 % 0-10 [facility] Blood platelet mean volumeOr dered By: Dr. Fagan on 07-12-2022 Platelet mean volume (Bld) [Entitic vol] 9.4 fL 6.2-12.0 [facility] Determination of erythrocyte mean corpuscular volume (MCV)Ordered By: Dr. Fagan on 07-12-2022 MCV (RBC) [Entitic vol] 87.7 fL 81-99 [facility] Hematocrit Auto (Bld) [Volum e fraction]Ordered By: Dr. Fagan on 07-12-2022 Hematocrit (Bld) [Volume fraction] 44.3 % 37-47 [facility] - Chemistry and C hemistry - challengeOrdered By: Dr. Fagan on 07-12-2022 ALP [Catalytic activity/Vol] 148 U/L 45-117 [facility] ALT [Catalytic activity/Vol] 24 U/L 13-56 [facility] CO2 [Moles/Vol] 25.0 mmol/L 21.0-32.0 [facility] Free T4 [Mass/Vol] 1.11 ng/dL 0.76-1.46 [facility] Globulin (S) [Mass/Vol] 3.6 g/dL 2.2-4.2 [facility] Urea nitrogen/Creatinine [Mass ratio] 18.0 mg/mg 10-20 [facility] - Hematology and Cell countsOrdered By: Dr. Fagan on 07-12-2022 Erythrocyte distribution width (RBC) [Entitic vol] 40.0 fL 35.1-43.9 [facility] Erythrocyte distribution width (RBC) [Ratio] 12.5 % 11.6-14.6 [facility] Immature granulocytes/100 WBC (Bld) 0.500 % 0.0-0.9 [facility] Comment on above: IG% - Immature Granu locytes (promyelocytes, myelocytes and metamyelocytes) > 1% indicates that a LEFT SHIFT is Present. MCH (RBC) [Entitic mass] 28.1 pg 27.0-32.0 [facility] Nucleated RBC/100 WBC (Bld) [Ratio] 0 % 0-5 [facility] MCHC Auto (RBC) [Mass/Vol]Or dered By: Dr. Fagan on 07-12-2022 MCHC (RBC) [Mass/Vol] 32.1 g/dL 32-36 [facility] No Panel InformationOrdered By: Dr. Fagan on 07-12-2022 Estimated GFR (MDRD) Amer 71 mL/min >60 [facility] Comment on above: GFR Calc Estimated GFR (MDRD) Non-Af Amer 59 mL/min >60 [facility] Comment on above: Non- GFR Calc Thyroid Stimulating Hormone (TSH) 0.53 uIU/mL 0.358-3.74 [facility] Vitamin D 25-Hydroxy 73.2 ng/mL [facility] Comment on above: Vitamin D 25(OH) Sta tus Range Deficiency <20 ng/mL (50nmol/L) Insufficiency 20 - 30 ng/mL (50 - 75 nmol/L) Sufficiency 30 - 100 ng/mL (75 - 250 nmol/L) Toxicity >100 ng/mL (>250 nmol/L) Platelets bldOrdered By: Dr. Fagan on 07-12-2022 Platelets (Bld) [#/Vol] 297 10*3/uL 150-450 [facility] Serum or plasma albumin satish urement (mass/volume)Ordered By: Dr. Fagan on 07-12-2022 Albumin [Mass/Vol] 3.7 g/dL 3.2-5.0 [facility] Serum or plasma albumin/glob ulin mass ratioOrdered By: Dr. Fagan on 07-12-2022 Albumin/Globulin [Mass ratio] 1.0 {ratio} 0.9-2.4 [facility] Serum or plasma calcium satish urement (mass/volume)Ordered By: Dr. Fagan on 07-12-2022 Calcium [Mass/Vol] 9.3 mg/dL 8.5-10.1 [facility] Serum or plasma cholesterol in HDL measurement (mass/volume)Ordered By: Dr. Fagan on 07-12-2022 Cholesterol in HDL [Mass/Vol] 73 mg/dL >40 [facility] Comment on above: The drugs N-Acetylcy steine and Metamizole may falsely depress this assay. Reference Range HDL <40 mg/dL Low HDL Cholesterol HDL >or= 60 mg/dL High HDL Cholesterol Serum or plasma cholesterol in VLDL measurement (mass/volume)Ordered By: Dr. Fagan on 07-12-2022 Cholesterol in VLDL [Mass/Vol] 33 mg/dL 5-40 [facility] Serum or plasma creatinine m easurement (mass/volume)Ordered By: Dr. Fagan on 07-12-2022 Creatinine [Mass/Vol] 1.00 mg/dL 0.55-1.02 [facility] Comment on above: The validity of the calculated GFR & GFRAA in patients over 70 years has not been determined. Clinical correlation is essential. Serum or plasma low density lipoprotein (LDL) cholesterol measurement (mass/volume)Ordered By: Dr. Fagan on 07-12-2022 Cholesterol in LDL [Mass/Vol] 109 mg/dL 0-130 [facility] Serum or plasma urea nitroge n measurement (mass/volume)Ordered By: Dr. Fagan on 07-12-2022 Urea nitrogen [Mass/Vol] 18 mg/dL 7-18 [facility] Thin prep Papanicolaou smear with manual screeningOrdered By: Dr. Fagan on 07-12-2022 Thin prep Papanicolaou smear with manual screening 12 U/L 15-37 [facility] Thin prep Papanicolaou smear with manual screening 7 5-15 [facility] Whole blood hemoglobin A1c/t otal hemoglobin ratio (mass fraction)Ordered By: Dr. Fagan on 07-12-2022 HbA1c (Bld) [Mass fraction] 5.8 % 3.8-5.6 [facility] Comment on above: Normal < 5.7 % Predi abetic 5.7 - 6.4 % Diabetic >or= 6.5 % Please note range changes. CT KNEE W/O CONTRAST RIGHTon 01-11-2022 CT KNEE W/O CONTRAST RIGHT ORIGINAL EXAMINATION: CT OF THE RIGHT KNEE WITHOUT CONTRAST01/10/2022 3:[address] of the right knee without contrast TECHNIQUE: Axial images of the knee are obtained with sagittal and coronal reconstructions. Limited axial imaging is also performed through the ipsilateral hip and ankle joints. This exam was performed according to our departmental dose-optimization program which includes automated exposure control, adjustment of the mA and/or kVp according to patient size and/or use of iterative reconstruction technique where applicable. Phu protocol COMPARISON: None HISTORY: ORDERING SYSTEM PROVIDED HISTORY: Reason for Exam: RT KNEE PAIN, unilateral primary osteoarthritis, FINDINGS: Medial compartment: Large marginal osteophytes with severe compartment narrowing, subchondral sclerosis and cystic changes. Lateral compartment: Large marginal osteophytes and subchondral sclerosis without significant compartment narrowing. Patellofemoral compartment: Large marginal osteophytes and moderate to severe chondromalacia. Other: There is small joint effusion. No significant popliteal cyst. There are a couple of small calcific loose bodies in the posterior joint space. Hip: Limited axial images through the hip joint. There is at least mild hip joint osteoarthritis. Ankle: Limited axial images of the ankle are also obtained. No aggressive bone lesion is seen at the ankle. IMPRESSION: Severe osteoarthritis in the right knee as described. Interpreted by: Lalo Virk MD Preliminary Report By: Lalo Virk MD Electronically signed By Lalo Virk MD Dictated Date: 01/11/2022 9:10:49 AM Prelim Date: 01/11/2022 9:14:32 AM Sign Date: 01/11/2022 9:14:32 AM Ordering Provider: [facility] ([place]) Absolute lymphocyte counton 01-10-2022 Lymphocytes Auto (Unsp spec) [#/Vol] 1.40 10*3/uL 0.83-4.51 [facility] Work Phone: Basophil percentageon 2021 Basophils/100 WBC (Bld) 1.0 % 0-1 [facility] Work Phone: Chloride [Moles/Vol] 108 mmol/L 98-107 [facility] Work Phone: Eosinophils/100 WBC (Bld) 4.1 % 0-5 [facility] Work Phone: Glucose [Mass/Vol] 102 mg/dL 74-106 [facility] Work Phone: Comment on above: Fasting Glucose resu lt from 100 to 125 mg/dL suggests IMPAIRED HOMEOSTASIS per A.D.A. criteria. Neutrophils (Bld) [#/Vol] 2.8 10*3/uL 2.0-7.7 [facility] Work Phone: Neutrophils/100 WBC (Bld) 57.2 % 47-70 [facility] Work Phone: Potassium [Moles/Vol] 3.9 mmol/L 3.5-5.1 [facility] Work Phone: Sodium [Moles/Vol] 143 mmol/L 136-145 [facility] Work Phone: WBC (Bld) [#/Vol] 4.9 10*3/uL 4.4-11.0 [facility] Work Phone: Bilirubin Test strip Ql (U)o n 01-10-2022 Bilirubin Ql (U) Negative Negative [facility] Work Phone: Blood erythrocytes count (nu mber/volume)on 01-10-2022 RBC (Bld) [#/Vol] 4.73 10*6/uL 4.2-5.4 [facility] Work Phone: Blood hemoglobin measurement (mass/volume)on 01-10-2022 Hemoglobin (Bld) [Mass/Vol] 14.0 g/dL 12.0-15.0 [facility] Work Phone: Blood lymphocytes/100 leukoc yteson 01-10-2022 Lymphocytes/100 WBC (Bld) 28.7 % 19-41 [facility] Work Phone: Blood monocytes/100 leukocyt eson 01-10-2022 Monocytes/100 WBC (Bld) 8.8 % 0-10 [facility] Work Phone: Blood platelet mean volumeon 01-10-2022 Platelet mean volume (Bld) [Entitic vol] 9.4 fL 6.2-12.0 [facility] Work Phone: Determination of erythrocyte mean corpuscular volume (MCV)on 01-10-2022 MCV (RBC) [Entitic vol] 89.0 fL 81-99 [facility] Work Phone: Hematocrit Auto (Bld) [Volum e fraction]on 01-10-2022 Hematocrit (Bld) [Volume fraction] 42.1 % 37-47 [facility] Work Phone: INR in Blood by Coagulation assayon 01-10-2022 INR Coag (Bld) [Relative time] 0.9 {INR} [facility] Work Phone: Ketones Test strip Ql (U)on 01-10-2022 Ketones Ql (U) Negative Negative [facility] Work Phone: Laboratory - Chemistry and C hemistry - challengeon 01-10-2022 CO2 [Moles/Vol] 26.0 mmol/L 21.0-32.0 [facility] Work Phone: Urea nitrogen/Creatinine [Mass ratio] 20.0 mg/mg 10-20 [facility] Work Phone: Laboratory - Coagulationon 0 01-10-2022 aPTT Coag (Bld) [Time] 26.2 s 24.1-36.2 [facility] Work Phone: PT Coag (PPP) [Time] 12.1 s 11.7-14.9 [facility] Work Phone: Laboratory - Hematology and Cell countson 01-10-2022 Erythrocyte distribution width (RBC) [Entitic vol] 41.7 fL 35.1-43.9 [facility] Work Phone: Erythrocyte distribution width (RBC) [Ratio] 12.8 % 11.6-14.6 [facility] Work Phone: Immature granulocytes/100 WBC (Bld) 0.200 % 0.0-0.9 [facility] Work Phone: Comment on above: IG% - Immature Granu locytes (promyelocytes, myelocytes and metamyelocytes) > 1% indicates that a LEFT SHIFT is Present. MCH (RBC) [Entitic mass] 29.6 pg 27.0-32.0 [facility] Work Phone: Nucleated RBC/100 WBC (Bld) [Ratio] 0 % 0-5 [facility] Work Phone: MCHC Auto (RBC) [Mass/Vol]on 01-10-2022 MCHC (RBC) [Mass/Vol] 33.3 g/dL 32-36 [facility] Work Phone: Nitrite Test strip Ql (U)on 01-10-2022 Nitrite Ql (U) Negative Negative [facility] Work Phone: No Panel Informationon 01-10 Estimated GFR (MDRD) Amer 61 mL/min >60 [facility] Work Phone: Comment on above: GFR Calc Estimated GFR (MDRD) Non-Af Amer 50 mL/min >60 [facility] Work Phone: Comment on above: Non- GFR Calc Platelets bldon 01-10-2022 Platelets (Bld) [#/Vol] 288 10*3/uL 150-450 [facility] Work Phone: Protein Test strip Ql (U)on 01-10-2022 Protein Ql (U) Negative Negative [facility] Work Phone: Serum or plasma calcium satish urement (mass/volume)on 01-10-2022 Calcium [Mass/Vol] 9.4 mg/dL 8.5-10.1 [facility] Work Phone: Serum or plasma creatinine m easurement (mass/volume)on 01-10-2022 Creatinine [Mass/Vol] 1.15 mg/dL 0.55-1.02 [facility] Work Phone: Comment on above: The validity of the calculated GFR & GFRAA in patients over 70 years has not been determined. Clinical correlation is essential. Serum or plasma urea nitroge n measurement (mass/volume)on 01-10-2022 Urea nitrogen [Mass/Vol] 23 mg/dL 7-18 [facility] Work Phone: Thin prep Papanicolaou smear with manual screeningon 01-10-2022 Thin prep Papanicolaou smear with manual screening 9 -15 [facility] Work Phone: Urine blood detectionon 12-23 RBC Ql (U) Negative Negative [facility] Work Phone: Urine clarityon 01-10-2022 Clarity (U) Clear Clear [facility] Work Phone: Urine color determinationon 01-10-2022 Color (U) Yellow Yellow [facility] Work Phone: Urine glucose detectionon Glucose Ql (U) Normal mg/dl Normal [facility] Work Phone: Urine leukocyte esterase det ection by dipstickon 01-10-2022 Leukocyte esterase Test strip Ql (U) 500 /ul Negative [facility] Work Phone: Urine pHon 01-10-2022 pH (U) 6.0 [pH] 5.0 - 8.0 [facility] Work Phone: Urine specific gravity measu rementon 01-10-2022 Specific gravity (U) [Rel density] 1.015 1.002-1.030 [facility] Work Phone: Urobilinogen Auto test strip Ql (U)on 01-10-2022 Urobilinogen Ql (U) Normal mg/dl Normal [facility] Work Phone: Culture, urine Bacteria identified Cx Nom (U) Mixed Gram Pos & Gram Neg Org [facility] Work Phone: Vital Signs Date Time Vital Sign Value Performing Clinician Faci lity 11-27-2024 08:15-0400 Body height 160.[address] Papito Fagan DO Work Phone: [facility] 11-27-2024 08:10-0400 Body mass index (BMI) [Ratio] 34.4 kg/m2 Dr. Papito Fagan DO Work Phone: [facility] 11-27-2024 08:10-0400 Body weight 88.[address] Papito Fagan DO Work Phone: [facility] 11-27-2024 08:10-0400 Diastolic blood pressure 82 mm[Hg] Dr. Papito Fagan DO Work Phone: [facility] 11-27-2024 08:10-0400 Systolic blood pressure 128 mm[Hg] Dr. Papito Fagan DO Work Phone: [facility] 11-15-2024 10:15-0400 Body height 160.[address] Papito Fagan DO Work Phone: [facility] 11-15-2024 10:15-0400 Body mass index (BMI) [Ratio] 34.2 kg/m2 Dr. Papito Fagan DO Work Phone: [facility] 11-15-2024 10:15-0400 Body temperature 97.3 [degF] Dr. Papito Fagan DO Work Phone: [facility] 11-15-2024 10:15-0400 Body weight 87.[address] Papito Fagan DO Work Phone: [facility] 11-15-2024 10:15-0400 Diastolic blood pressure 73 mm[Hg] Dr. Papito Fagan DO Work Phone: [facility] 11-15-2024 10:15-0400 Heart rate 79 /min Dr. Papito Fagan DO Work Phone: [facility] 11-15-2024 10:15-0400 Respiratory rate 16 /min Dr. Papito Fagan DO Work Phone: [facility] 11-15-2024 10:15-0400 SaO2% (BldA) [Mass fraction] 100 % Dr. Papito Fagan DO Work Phone: [facility] 11-15-2024 10:15-0400 Systolic blood pressure 146 mm[Hg] Dr. Papito Fagan DO Work Phone: [facility] 05-17-2024 09:58-0500 Body height 160.[address] Papito Fagan DO Work Phone: [facility] 05-17-2024 09:58-0500 Body mass index (BMI) [Ratio] 35.4 kg/m2 Dr. Papito Fagan DO Work Phone: [facility] 05-17-2024 09:58-0500 Body temperature 97.4 [degF] Dr. Papito Fagan DO Work Phone: [facility] 05-17-2024 09:58-0500 Body weight 90.[address] Papito Fagan DO Work Phone: [facility] 05-17-2024 09:58-0500 Diastolic blood pressure 74 mm[Hg] Dr. Papito Fagan DO Work Phone: [facility] 05-17-2024 09:58-0500 Heart rate 104 /min Dr. Papito Fagan DO Work Phone: [facility] 05-17-2024 09:58-0500 Respiratory rate 16 /min Dr. Papito Fagan DO Work Phone: [facility] 05-17-2024 09:58-0500 SaO2% (BldA) [Mass fraction] 99 % Dr. Papito Fagan DO Work Phone: [facility] 05-17-2024 09:58-0500 Systolic blood pressure 142 mm[Hg] Dr. Papito Fagan DO Work Phone: [facility] 05-12-2023 10:01-0500 Body height 160.02 cm [facility] 05-12-2023 10:01-0500 Body mass index (BMI) [Ratio] 35.4 kg/m2 [facility] 05-12-2023 10:01-0500 Body temperature 97.6 [degF] [facility] 05-12-2023 10:01-0500 Body weight 90.71 kg [facility] 05-12-2023 10:01-0500 Diastolic blood pressure 87 mm[Hg] [facility] 05-12-2023 10:01-0500 Heart rate 103 /min [facility] 05-12-2023 10:01-0500 Respiratory rate 16 /min [facility] 05-12-2023 10:01-0500 SaO2% (BldA) [Mass fraction] 99 % [facility] 05-12-2023 10:01-0500 Systolic blood pressure 145 mm[Hg] [facility] 11-21-2022 08:15-0400 Body height 160.[address] Vinnie Leo Work Phone: [facility] 11-21-2022 08:04-0400 Body mass index (BMI) [Ratio] 35.4 kg/m2 Dr. Vinnie Leo Work Phone: [facility] 11-21-2022 08:04-0400 Body weight 90.[address] Vinnie Leo Work Phone: [facility] 11-21-2022 08:04-0400 Diastolic blood pressure 82 mm[Hg] Dr. Vinnie Leo Work Phone: [facility] 11-21-2022 08:04-0400 Systolic blood pressure 124 mm[Hg] Dr. Vinnie Leo Work Phone: [facility] 11-11-2022 09:53-0400 Body mass index (BMI) [Ratio] 35.4 kg/m2 Dr. Vinnie Leo Work Phone: [facility] 11-11-2022 09:53-0400 Body temperature 97.4 [degF] Dr. Vinnie Leo Work Phone: [facility] 11-11-2022 09:53-0400 Body weight 90.[address] Vinnie Leo Work Phone: [facility] 11-11-2022 09:53-0400 Diastolic blood pressure 72 mm[Hg] Dr. Vinnie Leo Work Phone: [facility] 11-11-2022 09:53-0400 Heart rate 83 /min Dr. Vinnie Leo Work Phone: [facility] 11-11-2022 09:53-0400 Respiratory rate 16 /min Dr. Vinnie Leo Work Phone: [facility] 11-11-2022 09:53-0400 SaO2% (BldA) [Mass fraction] 97 % Dr. Vinnie Leo Work Phone: [facility] 11-11-2022 09:53-0400 Systolic blood pressure 143 mm[Hg] Dr. Vinnie Leo Work Phone: [facility] 12-21-2021 09:11-0400 Body height 163.[address] Vinnie Leo Work Phone: [facility] Work Phone: 12-21-2021 09:07-0400 Body mass index (BMI) [Ratio] 34 kg/m2 Dr. Vinnie Leo Work Phone: [facility] Work Phone: 12-21-2021 09:07-0400 Body weight 91.[address] Vinnie Leo Work Phone: [facility] Work Phone: 12-21-2021 09:07-0400 Diastolic blood pressure 80 mm[Hg] Dr. Vinnie Leo Work Phone: [facility] Work Phone: 12-21-2021 09:07-0400 Systolic blood pressure 118 mm[Hg] Dr. Vinnie Leo Work Phone: [facility] Work Phone: 11-18-2021 08:11-0400 Body height 163.[address] Vinnie Leo Work Phone: [facility] Work Phone: 11-18-2021 08:11-0400 Body mass index (BMI) [Ratio] 33.4 kg/m2 Dr. Vinnie Leo Work Phone: [facility] Work Phone: 11-18-2021 08:11-0400 Body weight 89.[address] Vinnie Leo Work Phone: [facility] Work Phone: 11-18-2021 08:11-0400 Diastolic blood pressure 82 mm[Hg] Dr. Vinnie Leo Work Phone: [facility] Work Phone: 11-18-2021 08:11-0400 Systolic blood pressure 128 mm[Hg] Dr. Vinnie Leo Work Phone: [facility] Work Phone: Encounters Encounter Date Encounter Type Care Provider Facility Start: 11-27-2024 [facility] Facility: [facility] Start: 11-27-2024 End: 11-27-2024 ambulatory [facility] [place] Start: 11-27-2024 End: 11-27-2024 Patient encounter procedure Rosa Elena JARQUIN -[facility] Work Phone: Start: 11-27-2024 End: 11-27-2024 Patient encounter status Rosa Elena Cesar MICA PASTER-C [facility] Start: 11-15-2024 End: 11-15-[address] Papito Fagan DO -[facility] Work Phone: Start: 11-15-2024 End: 11-15-[address] Papito Fagan DO Work Phone: -[facility] Start: 08-06-2024 End: 08-06-[address] Papito Fagan DO Work Phone: [facility] Work Phone: Start: 08-06-2024 End: 08-06-[address] Papito Fagan DO -Goldie Mchugh [facility] Start: 08-06-2024 End: 08-06-20[facility] Start: 05-17-2024 End: 05-17-[address] Papito Fagan DO -[facility] Work Phone: Start: 05-17-2024 End: 05-17-2024 ambulatory [facility] Facility:[facility] Start: 08-04-2023 End: 08-04-2023 ambulatory [facility] Work Phone: Start: 08-04-2023 End: 08-04-2023 Patient encounter procedure [facility]-Goldie Mchugh [facility] Start: 05-12-2023 End: 05-12-2023 ambulatory [facility] Work Phone: Start: 05-12-2023 End: 05-12-2023 Patient encounter procedure [facility] Work Phone: Start: 11-21-2022 End: 11-21-[address] Vinnie Leo Work Phone: [facility] Work Phone: Start: 11-21-2022 End: 11-21-[address] Vinnie Leo Work Phone: [facility] Work Phone: Start: 11-11-2022 End: 11-11-[address] Vinnie Leo Work Phone: [facility] Work Phone: Start: 08-25-2022 End: 08-25-2022 ambulatory [facility] Work Phone: Start: 08-25-2022 End: 08-25-2022 Patient encounter procedure [facility]-Outpatient Bone Densitometry Start: 07-12-2022 End: 07-12-2022 ambulatory [facility] Work Phone: Start: 07-12-2022 End: 07-12-2022 Patient encounter procedure [facility] Start: 04-26-2022 End: 04-26-2022 ambulatory [facility] Work Phone: Start: 04-26-2022 End: 04-26-2022 Discharged Recurring [facility]-Physical Therapy Start: 01-10-2022 End: 01-11-[address] BECK BARAKAT DO Facility:B Start: 01-10-2022 End: 01-10-[address] BECK BARAKAT DO [facility] Start: 01-10-2022 End: 01-10-[address] Vinnie Leo Work Phone: [facility] Work Phone: Start: 01-10-2022 End: 01-10-[address] Vinnie Leo Work Phone: [facility] Start: 12-21-2021 End: 12-21-[address] Vinnie Leo Work Phone: [facility] Start: 11-19-2021 End: 11-19-[address] Vinnie Leo Work Phone: [facility]Outpatient [facility] Ultrasound Start: 11-18-2021 End: 11-18-[address] Vinnie Leo Work Phone: [facility] Procedures Date Procedure Procedure Detail Performing Clinician Start: 08-06-2024 Vitamin D, 25-hydrox y measurement Dr. Papito Fagan DO Work Phone: Comment on above: Vitamin D StatusDefi ciency: <20 ng/mL (50nmol/L)Insufficiency: 20-30 ng/mL (50-75 nmol/L)Sufficiency: 30-100 ng/mL (75-250 nmol/L)Toxicity: >100 ng/mL (>250 nmol/L) Start: 11-21-2022 Screening mammography Angie Leo Work Phone: Start: 08-25-2022 Dual energy X-ray absorptiometry Start: 11-19-[address] Vinnie Leo Work Phone: Start: 11-18-2021 Screening mammography Angie Leo Work Phone: Urine culture Dr. Vinnie soler Work Phone: Immunizations Immunization Date Immunization Notes Care Provider [facility] 07-16-2020 Covid (Moderna) Dr. Vinnie calderon Work Phone: [facility] 06-18-2020 Covid (Moderna) Dr. Vinnie calderon Work Phone: [facility] Payers Date Payer Category Payer Private Health Insurance [id number] 2023 Self-pay [id number] 2022 Medicare [id number] 1955 Unknown 2091 [id number] Unknown [id number] Unknown [id number] [id number] Unknown [id number] [id number] [id number] Unknown [id number] 2.16.8 [id number] Unknown [id number] 2.16.8 [id number] Unknown [id number] 2.16.8 [id number] Social History Date Type Detail Facility Start: 11-18-2021 End: 11-21-2022 Tobacco smoking status PAIS Unknown if ever smoked [facility] Start: 07-09-2018 Non-smoker [facility] Start: 1955 Sex Assigned At Female A [facility] Tobacco smoking status No Smokin g Status Entered [facility] Start: 11-21-2022 Tobacco smoking stat us PAIS Never smoked tobacco (finding) [facility] Start: 08-10-2024 Sex Female (finding) [facility] Mental Status Date Assessment Result Facility 05-12-2023 Cognitive function Awake;Alert;A ppropriate;Fol lows Commands [facility] Work Phone: 11-11-2022 Cognitive function Awake;Alert;Appropriat e [facility] Work Phone: Evaluation + Plan note Note Date & Type Note Facility Evaluation + Plan note No data available for this section [facility] Evaluation note Note Date & Type Note Facility Evaluation note Diagnosis Onset Date Atrophic vaginitis acute Lichen sclerosus acute Encounter for routine gyneco logical examination noneactive [facility] Work Phone: Evaluation note Note Date & Type Note Facility Evaluation note Diagnosis Onset Date Atrophic vaginitis acute Lichen sclerosus acute Encounter for routine gyneco logical examination noneactive Atrophic vaginitis acute Lichen sclerosus acute [facility] Work Phone: Evaluation note Note Date & Type Note Facility Evaluation note No assessment information availa ble [facility] Work Phone: Evaluation note Note Date & Type Note Facility Evaluation note Diagnosis Onset Date Atrophic vaginitis acute Lichen sclerosus acute MORENITA (stress urinary incontinence, female) acute Encounter for routine gyneco logical examination noneactive [facility] Work Phone: Evaluation note Note Date & Type Note Facility Evaluation note Diagnosis Onset Date Resolution Encounter for routine gynecological examination noneactive November 27, 2024 8:08am [facility] Work Phone: Hospital Discharge instructions Note Date & Type Note Facility Hospital Discharge instructions No data available for this section [facility] Progress note Note Date & Type Note Facility Progress note No data available for this section [facility] Reason for referral (narrative) Note Date & Type Note Facility Reason for referral (narrative) No reason for referral information available [facility] Work Phone: Chief Complaint and Reason for Visit Chief Complaint SCREENING Annual ([employer]) ABNORMAL MAMMOGRAM Reason for Visit Atrophic vaginitis Lichen sclerosus Encounter for routine gynecological examination Chief Complaint SCREENING Annual (SUPER[employer]) ABNORMAL MAMMOGRAM 4 wk f/u PRE SURGICAL TESTING Reason for Visit Atrophic vaginitis Lichen sclerosus Encounter for routine gynecological examination Atrophic vaginitis Lichen sclerosus Chief Complaint PRE SURGICAL TESTING UNILATERAL OSTEOARTHRITIS R KNEE Chief Complaint UNILATERAL OSTEOARTH RITIS R KNEE Chief Complaint SCREENING Chief Complaint SCREENING PROLIA screening mammogram Annual ([employer]) Reason for Visit Atrophic vaginitis Lichen sclerosus MORENITA (stress urinary incontinence, female) Encounter for routine gynecological examination Chief Complaint PROLIA Chief Complaint Admit Date PROLIA May 17, 2024 9 :47am Chief Complaint Admit Date PROLIA November 15, 2024 9:52 am Chief Complaint Admit Date PROLIA November 15, 2024 9:52 am Annual ([employer]) November 27, 2024 8:0 8am Reason for Visit Admit Date Encounter for routine gynecological exam ination November 27, 2024 8:08am Family History Relationship Condition Age at Onset Recorded Date/T romeo mother Cardiac disease Unknown Malignant neoplasm of breast Unknown grandmother Diabetes mellitus Unknown aunt Malignant neoplasm of breast Unknown Malignant neoplasm of lung Unknown grandfather Alzheimer's disease Unknown Advance Directives Advance Directive Response Recorded Date/ Time Living Will Yes July 09, 2018 9:13am Power of Senior Care Manager Yes July 09 9:13am Advance Directive Response Recorded Date/ Time Living Will Yes July 09, 2018 8:13am Power of Senior Care Manager Yes July 09 8:13am Advance Directive Response Recorded Date/ Time Living Will Yes July 09, 2018 9:13am Do you have a Healthcare Power of Senior Care Manager? Yes July 09, 2018 9:13am Summary Purpose Additional Source Comments Goals (unrecognized section and content) Goals may be documented in a n alternate section No data available for this sectionGoals may be documented in an alternate sectionGoals may be documented in an alternate sectionGoals may be documented in an alternate sectionGoals may be documented in an alternate sectionGoals may be documented in an alternate sectionGoals may be documented in an alternate sectionGoals may be documented in an alternate sectionGoals may be documented in an alternate sectionGoals may be documented in an alternate sectionGoals may be documented in an alternate section Care Team (unrecognized sect ion and content) Care Team Personnel Name: VINNIE LEO MD Member Role: Primary Care Physician Address: Address: [address] [place] [address] INFORMATION SOURCE (unrecogn ized section and content) DATE CREATED AUTHOR 01/22/2022 [facility] DATE CREATED AUTHOR AUTHOR'S ORGANIZ ATION 11/26/2024 [facility] Care Teams (unrecognized sec tion and content) Team Status: Active Member Role Status Dates Dr. Vinnie Leo MD Family Provider Active Dr. Papito Fagan , Primary Care Provider Active Team Status: Inactive Member Role Status Dates Dr. Vinnie Leo MD Primary Care Provider Active Dr. Beck Barakat DO Attending Provider, Referrin g Provider Active Team Status: Inactive Member Role Status Dates Dr. Papito Fagan DO Primary Care Prov ider, Attending Provider, Referring Provider Active Team Status: Inactive Member Role Status Dates Dr. Vinnie Leo MD Referring Provider Active Rosa Elena Cesar MICA PASTER, MICA PASTER-C Attending Provider Active Dr. Papito Fagan DO Primary Care Provider Active Team Status: Inactive Member Role Status Dates Rosa Elena Cesar MICA PASTER, MICA PASTER-C Attending Provider, Referring Provider Active Dr. Papito Fagan DO Primary Care Provider Active Team Status: Inactive Member Role Status Dates Dr. Papito Fagan DO Primary Care Provider, Attendin g Provider Active Team Status: Inactive Member Role Status Dates Dr. Papito Fagan DO Primary Care Provider Active Start: May 17, 2024 End: May 17, 2024 Dr. Papito Fagan DO Attending Provider Active Start: May 17, 2024 End: May 17, 2024 Dr. Papito Fagan DO Referring Provider Active Start: May 17, 2024 End: May 17, 2024 Team Status: Inactive Member Role Status Dates Dr. Papito Fagan DO Primary Care Provider Active Start: August 06, 2024 End: August 06, 2024 Dr. Papito Fagan DO Attending Provider Active Start: August 06, 2024 End: August 06, 2024 Team Status: Active Member Role/Relationship Status Dates Dr. Papito Fagan DO Primary Care Provider Active Team Status: Inactive Member Role/Relationship Status Dates Dr. Papito Fagan DO Primary Care Provider Active Start: August 06, 2024 End: August 06, 2024 Dr. Papito Fagan DO Attending Provider Active Start: August 06, 2024 End: August 06, 2024 Team Status: Inactive Member Role/Relationship Status Dates Dr. Papito Fagan DO Primary Care Provider Active Start: November 15, 2024 End: November 15, 2024 Dr. Papito Fagan DO Attending Provider Active Start: November 15, 2024 End: November 15, 2024 Dr. Papito Fagan DO Referring Provider Active Start: November 15, 2024 End: November 15, 2024 Team Status: Inactive Member Role/Relationship Status Dates Dr. Papito Fagan DO Primary Care Provider Active Start: November 27, 2024 End: November 27, 2024 Dr. Papito Fagan DO Referring Provider Active Start: November 27, 2024 End: November 27, 2024 Rosa Elena Cesar MICA PASTER, MICA PASTER-C Attending Provider Active Start: November 27, 2024 End: November 27, 2024 FOR RECORDS PERTAINING TO PATIENTS WHO ARE [...] BE BASED ON THE PRIMARY CLINICAL RECORDS. [facility] [employer] [facility]. provides no warranty or guarantee of the accuracy or completeness of information in this document.
== END | disposition home or self-care (01) ==
LOC: OPBI 10:08
PROVIDERS: PCP Family Medicine; Referring Provider Family Medicine; Visit Provider Family Medicine
DX: Z12.31 Encounter for screening mammogram for malignant neoplasm of breast (principal); M81.0 Age-related osteoporosis without current pathological fracture
CPT/HCPCS: 77063; 77067; 77080